=== PATIENT | female | born 1940 | race Caucasian/White ===

== ENCOUNTER → 2016-06-23 | Outpatient (CLI) | payer OTHER ==
[2016-06-23 09:57] LABS: BASO % 0.5 %; BASO ABS # 0.03 K/uL (0-0.2); COMPLETE YES; EOS % 7.1 %; HEMATOCRIT 35.6 % (37-47); IG% 0.2 %; LYMPH % 37.6 %; LYMPH ABS # 2.34 K/uL (1.2-3.4); MEAN CORPUSCULAR HEMOGLOBIN 30.2 pg (25-34); MEAN CORPUSCULAR HGB CONC 33.1 g/dl (32-36); MEAN PLATELET VOLUME 9.3 fL (7.4-10.4); MONO % 7.9 %; NEUT % 46.7 %; PLATELET COUNT 353 K/uL (130-400); RED BLOOD COUNT 3.91 M/uL (4.2-5.4); WHITE BLOOD COUNT 6.22 K/uL (4.8-10.8)
[2016-06-23 10:20] LABS: ESTIMATED AVERAGE GLUCOSE 108 mg/dl; HA1C FLAG Normal (Normal)
[2016-06-23 10:57] LABS: ALT/SGPT 21 U/L (12-78); AST/SGOT 12 U/L (15-37); BLOOD UREA NITROGEN 22 mg/dl (7-18); BUN/CREATININE RATIO 21.8 (10-20); CALCIUM 9.1 mg/dl (8.5-10.1); CARBON DIOXIDE 28 mmol/L (21-32); CHLORIDE 105 mmol/L (98-107); GLUCOSE 95 mg/dl (70-99); POTASSIUM 4.4 mmol/L (3.5-5.1); SODIUM 140 mmol/L (136-145)
[2016-06-23 11:08] LABS: ALB/GLOB RATIO 0.9 (0.9-2); ALKALINE PHOSPHATASE 75 U/L (45-117); CHOLESTEROL 211 mg/dl (0-200); CHOLESTEROL/HDL RATIO 4.1; HDL CHOLESTEROL 52 mg/dl; LDL CHOLESTEROL CALCULATED 140 mg/dl; TRIGLYCERIDES 94 mg/dl (0-150); VERY LOW DENSITY LIPOPROT CALC 19 mg/dl
--- NOTE | 2016-06-30 07:34 | CODING QUERY MEDICAL NECESSITY ---
CQSUPPORTING DIAGNOSIS NEEDED A supporting diagnosis is required for the test/procedure performed on this patient in order for us to be reimbursed by the patient's insurance. Please provide a supporting diagnosis for the following test/procedure listed below next to the test name along with your signature. *If there is no additional diagnosis for this patient that would support the following test/procedure please document that below next to the test/procedure. Test(s)/Procedure(s) that require a supporting diagnosis: DOS 06/23/16 GLYCATED HEMOGLOBIN TEST Provider Signature: Date: Thank you Ashley Johnston Health Information Management Once completed, please kindly fax back to [phone] For questions please call [phone]
== END | disposition home or self-care (01) ==
LOC: C.LAB1850 08:54
PROVIDERS: ATTEND Nurse Practitioner Adult Health
DX: I10 Essential (primary) hypertension (principal); E66.9 Obesity, unspecified; E03.9 Hypothyroidism, unspecified

== ENCOUNTER → 2016-07-14 | Outpatient (CLI) | payer OTHER ==
[2016-07-14 15:13] LABS: TOTAL IRON BINDING CAPACITY 303 mcg/dl (250-450)
--- NOTE | 2016-07-19 12:50 | CODING QUERY MEDICAL NECESSITY ---
SUPPORTING DIAGNOSIS NEEDED Ritter MACK, A supporting diagnosis is required for the test/procedure performed on this patient in order for us to be reimbursed by the patient's insurance. Please provide a supporting diagnosis for the following test/procedure listed below next to the test name along with your signature. *If there is no additional diagnosis for this patient that would support the following test/procedure please document that below next to the test/procedure. Test(s)/Procedure(s) that require a supporting diagnosis: * ([id number]) B12 VITAMIN LEVEL DIAGNOSIS: DATE OF SERVICE: 07/14/16 Provider Signature: Date: Thank you Antonio Navarrete Health Information Management Once completed, please kindly fax back to [phone] For questions please call [phone]
== END | disposition home or self-care (01) ==
LOC: C.LAB1850 12:36
PROVIDERS: ATTEND Nurse Practitioner Adult Health
DX: D64.9 Anemia, unspecified (principal)

== ENCOUNTER → 2016-08-27 | Outpatient (CLI) | payer OTHER ==
--- NOTE | 2016-09-01 11:24 | CODING QUERY MEDICAL NECESSITY ---
CQSUPPORTING DIAGNOSIS NEEDED A supporting diagnosis is required for the test/procedure performed on this patient in order for us to be reimbursed by the patient's insurance. Please provide a supporting diagnosis for the following test/procedure listed below next to the test name along with your signature. *If there is no additional diagnosis for this patient that would support the following test/procedure please document that below next to the test/procedure. Test(s)/Procedure(s) that require a supporting diagnosis: DOS 08/27/16 VITAMIN B12 TEST QUERY RETURNED WITH SIGNATURE BUT NO DIAGNOSIS PLEASE ADD DIAGNOSIS AND SIGNATURE THANK YOU Provider Signature: Date: Thank you Ashley Johnston Health Information Management Once completed, please kindly fax back to [phone] For questions please call [phone]
== END | disposition home or self-care (01) ==
LOC: C.LAB1850 12:29
PROVIDERS: ATTEND Nurse Practitioner Adult Health
DX: E03.9 Hypothyroidism, unspecified (principal); D64.9 Anemia, unspecified

== ENCOUNTER → 2016-09-15 | Outpatient (CLI) | payer OTHER ==
--- NOTE | 2016-09-15 15:37 | DIAGNOSTIC IMAGING REPORT ---
CHEST 2 VIEWS ROUTINE CLINICAL HISTORY: 75 years-old Female presenting with cough. TECHNIQUE: PA and lateral views of the chest were obtained. COMPARISON: None. FINDINGS: Cardiomediastinal silhouette normal. Lungs and pleural spaces clear. Multilevel degenerative changes of the thoracic spine. Cholecystectomy clips. IMPRESSION: 1. No acute cardiopulmonary disease. Electronically signed by: Ryan Ibanez M.D. 09/15/2016 3:36 PM Dictated Date/Time: 09/15/2016 3:35 PM
== END | disposition home or self-care (01) ==
LOC: C.RAD1850 15:25
PROVIDERS: ATTEND Nurse Practitioner Adult Health
DX: R05 Cough (principal)

== ENCOUNTER → 2016-11-30 | Outpatient (CLI) | payer OTHER ==
--- NOTE | 2016-11-30 16:05 | DIAGNOSTIC IMAGING REPORT ---
L-SPINE MIN 4 VIEWS ROUTINE CLINICAL HISTORY: 76 years-old Female presenting with fell off of a chair, lower back pain. TECHNIQUE: Frontal, bilateral oblique, lateral, and coned in lateral views of the lumbar spine were obtained. COMPARISON: None. FINDINGS: Mild scoliotic curvature of the lumbar spine. Normal lumbar lordosis. Vertebral bodies maintain normal height and alignment otherwise. Intervertebral disc height loss at essentially every level to varying degrees with endplate sclerosis and vacuum disc phenomenon noted. Anterior osteophytosis noted at nearly every level. L5-S1 is largely preserved. No radiographic evidence of fracture or subluxation. Sacroiliac joints and sacrum grossly intact. Moderate stool burden. Cholecystectomy clips. IMPRESSION: 1. No radiographic evidence of acute or osseous injury of the lumbar spine. 2. Multilevel degenerative change. Electronically signed by: Ryan Ibanez M.D. 11/30/2016 4:04 PM Dictated Date/Time: 11/30/2016 4:02 PM
[2016-11-30 16:36] LABS: HEMATOCRIT 35.3 % (37-47); MEAN CELL VOLUME 89.4 fL (80-100); MEAN CORPUSCULAR HEMOGLOBIN 29.9 pg (25-34); MEAN CORPUSCULAR HGB CONC 33.4 g/dl (32-36); MEAN PLATELET VOLUME 9.4 fL (7.4-10.4); PLATELET COUNT 382 K/uL (130-400); RED BLOOD COUNT 3.95 M/uL (4.2-5.4); WHITE BLOOD COUNT 9.14 K/uL (4.8-10.8)
[2016-11-30 17:07] LABS: ALT/SGPT 17 U/L (12-78); AST/SGOT 13 U/L (15-37); BLOOD UREA NITROGEN 21 mg/dl (7-18); BUN/CREATININE RATIO 18.9 (10-20); CALCIUM 9.1 mg/dl (8.5-10.1); CARBON DIOXIDE 25 mmol/L (21-32); CHLORIDE 103 mmol/L (98-107); GLUCOSE 87 mg/dl (70-99); POTASSIUM 4.2 mmol/L (3.5-5.1); SODIUM 136 mmol/L (136-145)
[2016-11-30 17:10] LABS: ALB/GLOB RATIO 0.9 (0.9-2); ALKALINE PHOSPHATASE 89 U/L (45-117)
[2016-11-30 17:45] LABS: COMPLETE YES; EOSINOPHIL % 1.8 %; LYMPH ABS # 2.35 K/uL (1.2-3.4); LYMPHOCYTE % 25.7 %; NEUTROPHILS % 55.7 %; VARIANT LYM ABS # 1.05 K/uL; VARIANT LYMPHOCYTE % 11.5 %
[2016-11-30 19:14] LABS: LYME DISEASE AB IGG NEG (NEG); LYME DISEASE AB IGM NEG (NEG)
== END | disposition home or self-care (01) ==
LOC: C.RAD1850 15:18
PROVIDERS: ATTEND Nurse Practitioner Adult Health
DX: S39.92XA Unspecified injury of lower back, initial encounter (principal); M89.8X8 Other specified disorders of bone, other site; R50.9 Fever, unspecified; W19.XXXA Unspecified fall, initial encounter

== ENCOUNTER → 2017-03-02 | Outpatient (CLI) | payer OTHER ==
--- NOTE | 2017-03-02 13:14 | DIAGNOSTIC IMAGING REPORT ---
CHEST 2 VIEWS ROUTINE CLINICAL HISTORY: Z87.898 H/O [id number] COMPARISON STUDY: 09/15/2016 FINDINGS: The cardiac and mediastinal contours are normal. There is no evidence of focal pulmonary consolidation. There is no evidence of failure. No pleural effusions are visualized.[ IMPRESSION: No active disease in the chest. Electronically signed by: Tadeo Martinez M.D. 03/02/2017 1:13 PM Dictated Date/Time: 03/02/2017 1:12 PM
== END | disposition home or self-care (01) ==
LOC: C.RAD1850 13:06
PROVIDERS: ATTEND Nurse Practitioner Adult Health
DX: R06.2 Wheezing (principal); Z87.898 Personal history of other specified conditions

== ENCOUNTER → 2017-03-30 | Outpatient (CLI) | payer OTHER ==
[2017-03-30 17:22] LABS: BASO % 0.4 %; BASO ABS # 0.03 K/uL (0-0.2); EOS ABS # 0.42 K/uL (0-0.5); HEMATOCRIT 34.8 % (37-47); HEMOGLOBIN 11.4 g/dL (12.0-16.0); IG# 0.01 K/uL (0.00-0.02); LYMPH % 42.1 %; LYMPH ABS # 2.95 K/uL (1.2-3.4); MEAN CELL VOLUME 91.6 fL (80-100); MEAN CORPUSCULAR HGB CONC 32.8 g/dl (32-36); MEAN PLATELET VOLUME 9.1 fL (7.4-10.4); MONO % 9.6 %; MONO ABS # 0.67 K/uL (0.11-0.59); NEUT % 41.8 %; NEUT ABS # 2.93 K/uL (1.4-6.5); PLATELET COUNT 375 K/uL (130-400); RED CELL DISTRIBUTION WIDTH CV 13.9 % (11.5-14.5); RED CELL DISTRIBUTION WIDTH SD 46.5 fL (36.4-46.3); WHITE BLOOD COUNT 7.01 K/uL (4.8-10.8)
--- NOTE | 2017-03-30 17:33 | DIAGNOSTIC IMAGING REPORT ---
KUB HISTORY: R10.9 Acute left flank pain [id number] COMPARISON: None. FINDINGS: The bowel gas pattern is unremarkable. There are no dilated loops of small bowel to suggest an obstruction. No renal calculi. No ureteral calculi. Calcifications in the deep pelvis likely represent phleboliths. Cholecystectomy. Moderate well-formed stool seen within the colon. Moderate degenerative changes within the lumbar spine. No pneumoperitoneum or pneumatosis. IMPRESSION: No renal or ureteral stones. Electronically signed by: Virgil James M.D. 03/30/2017 5:32 PM Dictated Date/Time: 03/30/2017 5:31 PM
[2017-03-30 17:43] LABS: ALBUMIN 3.3 gm/dl (3.4-5.0); ALT/SGPT 18 U/L (12-78); AST/SGOT 15 U/L (15-37); BLOOD UREA NITROGEN 17 mg/dl (7-18); CARBON DIOXIDE 29 mmol/L (21-32); CREATININE 1.08 mg/dl (0.60-1.20); GLUCOSE 90 mg/dl (70-99); LIPASE 108 U/L (73-393); POTASSIUM 4.4 mmol/L (3.5-5.1); SODIUM 134 mmol/L (136-145)
[2017-03-30 17:46] LABS: ALKALINE PHOSPHATASE 86 U/L (45-117); TOTAL PROTEIN 7.4 gm/dl (6.4-8.2)
== END | disposition home or self-care (01) ==
LOC: C.RAD1850 16:49
PROVIDERS: ATTEND Nurse Practitioner Adult Health
DX: R10.9 Unspecified abdominal pain (principal); R39.9 Unspecified symptoms and signs involving the genitourinary system

== ENCOUNTER → 2017-04-05 | Outpatient (CLI) | payer OTHER ==
[~2017-04-05] MED LIST: OPTIRAY 320 IV PRN
--- NOTE | 2017-04-05 15:01 | DIAGNOSTIC IMAGING REPORT ---
ABD/PELVIS IV CONTRAST ONLY CLINICAL HISTORY: 76 years-old Female presenting with R10.9 Acute left flank painR10.12 Abdominal pain, acute, left up. TECHNIQUE: Multidetector CT of the abdomen and pelvis was performed after the administration of intravenous contrast. IV contrast: 93 mL of Optiray 320. A dose lowering technique was used consistent with the principles of ALARA (as low as reasonably achievable). COMPARISON: Plain radiographs from 03/30/2017. CT DOSE (mGy.cm): The estimated cumulative dose is 844.91 mGy.cm. FINDINGS: Photographic Technician topogram: Cholecystectomy clips. Lung bases: Minimal basilar opacities, likely atelectasis. Mild mosaic attenuation at the lung bases could suggest small airways disease. Normal heart size. No pericardial or pleural effusion. Liver: Normal morphology. No liver lesion. Patent hepatic vasculature. Biliary: No intrahepatic or extrahepatic biliary ductal dilatation. Gallbladder surgically absent. Pancreas: Moderate parenchymal atrophy. Spleen: Normal. Adrenal glands: Indeterminate 1.3 cm right adrenal gland nodule. Kidneys and ureters: Left parapelvic cysts noted at the lower pole. No hydronephrosis. Normal parenchyma. Mild nonspecific perinephric fat stranding. No nephrolithiasis. Normal ureters. Bladder: Mild circumferential bladder wall thickening. Pelvic organs: Uterus surgically absent. No adnexal masses. Bowel: Moderate stool burden in the right colon. The appendix is normal. No bowel obstruction. The terminal ileum is mildly distended with fecal material. Peritoneal cavity: No free fluid or intraperitoneal gas. Lymph nodes: No enlarged lymph nodes in the abdomen or pelvis. Vasculature: Atherosclerosis of the normal caliber abdominal aorta. IVC patent. Abdominal wall: Midline infra umbilical abdominal wall surgical incision. Musculoskeletal: Degenerative changes of the spine. IMPRESSION: 1. No nephrolithiasis or hydronephrosis. 2. Mild circumferential bladder wall thickening could suggest cystitis. Correlate with urinalysis. 3. Indeterminate 1.3 cm right adrenal gland nodule. Electronically signed by: Ryan Ibanez M.D. 04/05/2017 2:59 PM Dictated Date/Time: 04/05/2017 2:53 PM
== END | disposition home or self-care (01) ==
LOC: C.CTS 14:31
PROVIDERS: ATTEND Nurse Practitioner Adult Health
DX: R10.12 Left upper quadrant pain (principal); E27.9 Disorder of adrenal gland, unspecified

== ENCOUNTER → 2017-05-19 | Outpatient (CLI) | payer OTHER | END | disposition home or self-care (01) | LOC: C.PATHSPEC 18:03 | PROVIDERS: ATTEND Urology | DX: N32.89 Other specified disorders of bladder (principal) ==

== ENCOUNTER 2020-07-21 16:03 | Inpatient (IN) ==
[2020-07-21] MEDS ORDERED: cefTRIAXone SODIUM 2,000 MG/70 ML BAG IV STA (19:16)
[2020-07-21] MEDS ORDERED: ACETAMINOPHEN 500 MG TAB PO STA (19:18)
[2020-07-21 19:51] LABS: Hemoglobin 9.2 g/dL (12.0-16.0); Mean Corpuscular Hemoglobin 29.9 pg (25-34); Mean Corpuscular Hgb Conc 34.1 g/dL (32-36); Mean Corpuscular Volume 87.7 fL (80-100); Mean Platelet Volume 9.2 fL (7.4-10.4); Platelet Count 279 K/uL (130-400); RDW Coefficient of Variation 13.7 % (11.5-14.5); RDW Standard Deviation 44.2 fL (36.4-46.3); Red Blood Count 3.08 M/uL (4.2-5.4); White Blood Count 19.92 K/uL (4.8-10.8)
[2020-07-21 20:01] LABS: Alanine Aminotransferase 31 U/L (12-78); Albumin Level 3.1 gm/dl (3.4-5.0); Aspartate Aminotransferase 25 U/L (15-37); BUN Creatinine Ratio 18.2 (10-20); Bilirubin,Total 0.5 mg/dl (0.2-1); Blood Urea Nitrogen 28 mg/dl (7-18); Calcium 8.9 mg/dl (8.5-10.1); Carbon Dioxide 22 mmol/L (21-32); Chloride 101 mmol/L (98-107); Est GFR (African American) 36.8 ml/min; Est GFR (Non-African American) 31.8 ml/min; Glucose 115 mg/dl (70-99); Magnesium 2.6 mg/dl (1.8-2.4); Potassium 4.9 mmol/L (3.5-5.1); Sodium 130 mmol/L (136-145)
[2020-07-21 20:03] LABS: Albumin Globulin Ratio 0.8 (0.9-2); Alkaline Phosphatase 75 U/L (45-117); Globulin 3.7 gm/dl (2.5-4.0); Total Protein 6.8 gm/dl (6.4-8.2)
[2020-07-21 20:06] LABS: Partial Thromboplastin Time 26.7 Seconds (21.0-31.0); Prothrombin Time 10.3 Seconds (9.0-12.0)
[2020-07-21 20:19] LABS: Basophils # (auto) 0.01 K/uL (0-0.2); Basophils % (auto) 0.1 %; Eosinophils # (auto) 0.01 K/uL (0-0.5); Eosinophils % (auto) 0.1 %; Immature Granulocytes % (auto) 0.5 %; Lymphocytes # (auto) 1.22 K/uL (1.2-3.4); Lymphocytes % (auto) 6.1 %; Monocytes # (auto) 1.85 K/uL (0.11-0.59); Monocytes % (auto) 9.3 %; Neutrophils # (auto) 16.73 K/uL (1.4-6.5); Neutrophils % (auto) 83.9 %
[2020-07-21] MEDS ORDERED: VANCOMYCIN CONSULT ACTIVE PRN (20:30)
[2020-07-21] MEDS ORDERED: VANCOMYCIN HCL 1,000 MG/270 ML BAG IV STA (20:30)
[2020-07-21] MEDS ORDERED: SODIUM CHLORIDE 0.9% 1000ML 500 ML IV ONE (20:30)
[2020-07-21 20:39] LABS: Appearance Urine Cloudy (Clear); Bacteria Urine Automated Negative (Negative); Bilirubin Urine Negative (Negative); Blood Urine Negative (Negative); Cast Urine Automated 0 /lpf (0-5); Color Urine Yellow; Glucose Urine UA Negative (Negative); Ketones Urine Negative (Negative); Leukocyte Esterase Urine Negative (Negative); Nitrite Urine Negative (Negative); Protein Urine Negative (Negative); RBC Urine Automated 0-4 /hpf (0-4); Specific Gravity Urine 1.016 (1.000-1.030); Urobilinogen Urine Negative (Negative)
--- NOTE | 2020-07-21 21:23 | XRay Report ---
SINGLE VIEW CHEST CLINICAL HISTORY: Sepsis. FINDINGS: An AP, portable, upright chest radiograph is compared to study dated 12/20/2018. The heart is enlarged noting atherosclerotic calcification of the thoracic aorta. There is pulmonary vascular c ongestion. There is bibasilar atelectasis. No large pleural effusion or pneumothorax is seen. The ske letal structures are osteopenic. The bony thorax is grossly intact. Arthritic change is seen in the s houlders. IMPRESSION: Cardiomegaly with mild pulmonary vascular congestion. ACT 112: Negative or not required by law. Electronically signed by: Salvatore Khan M.D. 07/21/2020 9:21 PM
[2020-07-21] MEDS ORDERED: DAPTOmycin 475 MG in SYRINGE 0 ML IV ONE (22:07)
--- NOTE | 2020-07-21 23:12 | History & Physical Report ---
Date of Service July 21, 2020 Assessment & Plan (1) Cellulitis of left lower extremity without foot: Continue daptomycin IV and ceftriaxone IV. Follow clinical examination Continue local wound care. Present on Admission?: Yes (2) Obstructive sleep apnea: CPAP at bedtime as needed Present on Admission?: Yes (3) Hypothyroidism: Continue levothyroxine 150 mcg daily Present on Admission?: Yes (4) Hypertension: Continue aspirin Hold lisinopril Present on Admission?: Yes (5) CKD (chronic kidney disease), stage III: Creatinine 1.53 upon admission, with range 1.32-1.6. Hold lisinopril and diclofenac sodium. Give 1 L normal saline Recheck laboratories in a.m. Present on Admission?: Yes (6) Acid reflux disease: Continue omeprazole 40 mg daily Present on Admission?: Yes (7) Depression with anxiety: Depression with anxiety/fibromyalgia- Continue duloxetine, nortriptyline and quetiapine. Present on Admission?: Yes (8) Fibromyalgia: Present on Admission?: Yes History of Present Illness Chief Complaint: The patient presents to the emergency department worsening left lower extremity erythema and warmth over the past 4 days. Primary Care Provider: Betsy Lovett MD The patient is an 79-year-old female with a past medical history including VALERIA, osteoarthritis, obesity, hypothyroidism, fibromyalgia, chronic back pain, GERD, anemia, hypertension, depression with anxiety and chronic interstitial cystitis. The patient reports that she had tripped over something on the floor several days ago, and bumped her left leg. Since that time, her left lower extremity began to develop redness and warmth, which is has extended from the lateral surface distal one third of her leg up to her knee. Work-up in the emergency department including venous Doppler which was negative for DVT. Patient was given daptomycin IV and ceftriaxone IV, and normal saline 500 cc while in the ED. Allergies Allergy/AdvReac Type Severity Reaction Status Date / Time Sulfa (Sulfonamide Allergy Mild Hives Verified 07/21/20 20:35 Antibiotics) fluoxetine [From Prozac] AdvReac Unknown Opposite Verified 07/21/20 20:35 effect Home Medications Medication Instructions Recorded Confirmed Type acetaminophen 650 mg 1,300 mg PO BID PRN tab 10/20/18 07/21/20 History tablet,extended release cholecalciferol (vitamin D3) 25 1,000 unit PO QAM cap 10/20/18 07/21/20 History mcg (1,000 unit) capsule flaxseed oil 1,000 mg capsule 1,000 mg PO QAM cap 10/20/18 07/21/20 History aspirin 81 mg PO QPM 11/09/18 07/21/20 History multivitamin-ferrous 1 tab PO QAM 11/16/18 07/21/20 History fumarate-folic acid 18 mg-400 mcg tablet miscellaneous medical supply #1 ea 08/13/19 07/10/20 Rx albuterol sulfate 90 mcg/actuation 1 puff INHALATION Q4H PRN #18 gm 09/10/19 07/21/20 Rx aerosol inhaler diclofenac sodium 75 mg 75 mg PO Q12H #60 tab 01/30/20 07/21/20 Rx tablet,delayed release duloxetine 60 mg capsule,delayed 60 mg PO DAILY #30 cap 02/27/20 07/21/20 Rx release quetiapine 25 mg tablet 75 mg PO HS #90 tab 03/07/20 07/21/20 Rx nortriptyline 75 mg capsule 150 mg PO HS #60 cap 04/17/20 07/21/20 Rx lisinopril 20 mg tablet 20 mg PO QAM #90 tab 05/28/20 07/21/20 Rx omeprazole 40 mg capsule,delayed 40 mg PO DAILY #90 cap 05/28/20 07/21/20 Rx release levothyroxine 150 mcg tablet 150 mcg PO QAM #90 tab 07/18/20 07/21/20 Rx Past Med/Surg History Medical History (Updated 07/22/20 @ 04:22 by Donald Beal MD) Adrenal gland cyst Anemia Aortic regurgitation follows with Dr. 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 Ryan Sleep apnea cpap Spinal stenosis Surgical History H/O: hysterectomy KEMAR, BSO History of appendectomy (~1981) History of cataract surgery bilt History of cholecystectomy History of colonoscopy with polypectomy recent 11/12/2019 History of dilatation and curettage History of esophagogastroduodenoscopy (EGD) recent 11/12/2019 History of lumpectomy of right breast benign History of meniscectomy of left knee History of tooth extraction History of total left knee replacement (TKR) History of total right knee replacement (TKR) Hx of tonsillectomy Family History Mother Osteoporosis CHF (congestive heart failure) Heart disease Cardiac disorder Myocardial infarction Lung disease Hypertension Father Alcohol abuse Abdominal aortic aneurysm Cardiac disorder Hypertension Brother Liver cancer Prostate cancer Abdominal aortic aneurysm Cardiac disorder Hypertension Aunt Breast cancer Other No family history of adverse response to anesthesia Denies family history of Colon cancer Ovarian cancer Social History Smoking Status: Never smoker Second Hand Exposure: Yes (parents smoked); Hx Alcohol Use: Yes Alcohol type: wine Hx Substance Use: No Preferred Language: [place] Island[place] Communication Ability: Effective Visual Impairment: No Limitations Hearing Ability: Normal Milk Driver Required: No Beliefs That Will Affect Care: None marital status: Current Living Situation: Family Current Living Situation Comment: son lives with her current occupational status: retired Other Information That Helps Us Care for You: No Feels Safe at Home: Yes Safety Concerns: Feels Safe At This Time Childhood Exposure to Second-Hand Smoke: Yes Dental Care, Regularly: Yes Physical Activity Frequency: 5-6 Times per Week Seatbelt Use: always Sunscreen Use: Yes Assistive Devices: None Assistive Devices Comment: reading glasses Review of Systems Review of Systems: The patient denies chest pain, palpitations, shortness of breath, dyspnea on exertion, cough, sore throat, fevers, chills, sweats, nausea, vomiting, diarrhea , constipation, abdominal pain, pelvic pain, blood in urine or stool, dysuria, urinary frequency or urgency, lightheadedness, dizziness, headache, memory loss, loss of consciousness, abnormal bruising or bleeding, imbalance, focal or generalized weakness, numbness or tingling in arms, generalized arthralgias or myalgias, back or neck pain, or night sweats. The review of systems is otherwise negative other than for that already noted above, and at least 10 systems have been reviewed. Physical Exam Physical Exam: The patient is awake, alert and oriented 3, well developed and well nourished, normocephalic and atraumatic, lying in bed and in no acute distress. HEENT--PERRL, EOMI, mucous membranes and oropharynx dry. Neck--supple. No JVD. No bruits. Thyroid normal, trachea midline, no adenopathy. Heart--normal S1 and S2. No murmurs, rubs or gallops. Lungs--clear bilaterally, no respiratory distress, no accessory muscle use. Abdomen--normal bowel sounds and soft. Nontender. Nondistended. Obese Extremities--right lower extremity normal. Left lower extremity with abrasion lateral distal third of tibia, with erythema extending laterally up to the knee Dermatologic--left lower extremity rashes noted Neurologic--cranial nerves II through XII grossly intact. Rheumatologic--normal range of motion. Psychiatric--normal affect. Results & Data Results & Data ([facility]) Vital Signs (Past 12 Hours) Vital Signs Temp Pulse Pulse Resp BP BP Pulse Ox 07/21/20 22:31 58 L 17 124/45 L 97 07/21/20 21:31 57 L 21 133/48 L 96 07/21/20 21:01 63 19 126/46 L 97 07/21/20 20:56 62 67 20 130/51 L 97 07/21/20 20:31 58 L 16 130/51 L 97 07/21/20 20:03 68 18 140/55 L 95 07/21/20 19:59 99.1 F 07/21/20 19:01 98.8 F 73 66 22 160/78 H 160/78 H 95 07/21/20 16:10 98.8 F 92 H 18 157/77 H 96 Laboratory Results Laboratory Results WBC 19.92 K/uL (4.8-10.8) H 07/21/20 19: RBC 3.08 M/uL (4.2-5.4) L 07/21/20 19: Hgb 9.2 g/dL (12.0-16.0) L 07/21/20 19: Hct 27.0 % (37-47) L 07/21/20 19:22 MCV 87.7 fL (80-100) 07/21/20 19: MCH 29.9 pg (25-34) 07/21/20 19:22 MCHC 34.1 g/dL (32-36) 07/21/20 19: RDW Std Deviation 44.2 fL (36.4-46.3) 07/21/20 19: RDW Coeff of Nona 13.7 % (11.5-14.5) 07/21/20 19: Plt Count 279 K/uL (130-400) 07/21/20 19: MPV 9.2 fL (7.4-10.4) 07/21/20 19: Immature Gran % (Auto) 0.5 % 07/21/20 19: Neut % (Auto) 83.9 % 07/21/20 19: Lymph % (Auto) 6.1 % 07/21/20: [place] % (Auto) 9.3 % 07/21/20 19: Eos % (Auto) 0.1 % 07/21/20 19: Baso % (Auto) 0.1 % 07/21/20 19: Neut # (Auto) 16.73 K/uL (1.4-6.5) H 07/21/20 19: Lymph # (Auto) 1.22 K/uL (1.2-3.4) 07/21/20 19: [place] # (Auto) 1.85 K/uL (0.11-0.59) H 07/21/20 19: Eos # (Auto) 0.01 K/uL (0-0.5) 07/21/20 19: Baso # (Auto) 0.01 K/uL (0-0.2) 07/21/20: Immature Gran # (Auto) 0.10 K/uL (0.00-0.02) H 07/21/20 19: PT 10.3 Seconds (9.0-12.0) 07/21/20 19: INR 1.0 (0.9-1.1) 07/21/20 19: APTT 26.7 Seconds (21.0-31.0) 07/21/20: PTT Ratio 1.0 07/21/20 19: Sodium 130 mmol/L (136-145) L 07/21/20 19: Potassium 4.9 mmol/L (3.5-5.1) 07/21/20 19:22 Chloride 101 mmol/L (98-107) 07/21/20 19:22 Carbon Dioxide 22 mmol/L (21-32) 07/21/20 19:22 Anion Gap 7.0 (3-11) 07/21/20 19:22 BUN 28 mg/dl (7-18) H 07/21/20 19:22 Creatinine 1.53 mg/dl (0.6-1.2) H 07/21/20 19:22 Est Cr Clr Drug Dosing Not Reportable 07/21/20 19:22 Est GFR ( Amer) 36.8 ml/min 07/21/20 19: Est GFR (Non-Af Amer) 31.8 ml/min 07/21/20 19:22 BUN/Creatinine Ratio 18.2 (10-20) 07/21/20 19:22 Glucose 115 mg/dl (70-99) H 07/21/20 19:22 Lactate 1.3 mmol/L (0.4-2.0) 07/21/20 19:22 Calcium 8.9 mg/dl (8.5-10.1) 07/21/20 19:22 Magnesium 2.6 mg/dl (1.8-2.4) H 07/21/20 19:22 Total Bilirubin 0.5 mg/dl (0.2-1) 07/21/20 19:22 AST 25 U/L (15-37) 07/21/20 19:22 ALT 31 U/L (12-78) 07/21/20 19:22 Alkaline Phosphatase 75 U/L (45-117) 07/21/20 19:22 Total Protein 6.8 gm/dl (6.4-8.2) 07/21/20 19:22 Albumin 3.1 gm/dl (3.4-5.0) L 07/21/20 19:22 Globulin 3.7 gm/dl (2.5-4.0) 07/21/20 19:22 Albumin/Globulin Ratio 0.8 (0.9-2) L 07/21/20 19:22 Urine Color Yellow 07/21/20 20:17 Urine Appearance Cloudy (Clear) A 07/21/20 20:17 Urine pH 5.0 (4.5-7.5) 07/21/20 20:17 Ur Specific [place] 1.016 (1.000-1.030) 07/21/20 20:17 Urine Protein Negative (Negative) 07/21/20 20:17 Urine Glucose (UA) Negative (Negative) 07/21/20 20:17 Urine Ketones Negative (Negative) 07/21/20 20:17 Urine Blood Negative (Negative) 07/21/20 20:17 Urine Nitrite Negative (Negative) 07/21/20 20:17 Urine Bilirubin Negative (Negative) 07/21/20 20:17 Urine Urobilinogen Negative (Negative) 07/21/20 20:17 Ur Leukocyte Esterase Negative (Negative) 07/21/20 20:17 Urine WBC (Auto) 1-5 /hpf (0-5) 07/21/20 20:17 Urine RBC (Auto) 0-4 /hpf (0-4) 07/21/20 20:17 U Hyaline Cast (Auto) 0 /lpf (0-5) 07/21/20 20:17 U Epithel Cells (Auto) 10-20 /lpf (0-5) H 07/21/20 20:17 Urine Bacteria (Auto) Negative (Negative) 07/21/20 20:17 COVID-19 Eval Order Covid19 at [facility] 07/21/20 20:01 SARS-CoV-2 (PCR) NEGATIVE (Negative) 07/21/20 20:01 Impressions Chest X-Ray 07/21/20 19:16 SINGLE VIEW CHEST CLINICAL HISTORY: Sepsis. FINDINGS: An AP, portable, upright chest radiograph is compared to study dated 12/20/2018. The heart is enlarged noting atherosclerotic calcification of the thoracic aorta. There is pulmonary vascular congestion. There is bibasilar atelectasis. No large pleural effusion or pneumothorax is seen. The skeletal structures are osteopenic. The bony thorax is grossly intact. Arthritic change is seen in the shoulders. IMPRESSION: Cardiomegaly with mild pulmonary vascular congestion. ACT 112: Negative or not required by law. Electronically signed by: Salvatore Khan M.D. 07/21/2020 9:21 PM Code Status & VTE Plan Code Status Full code VTE Prophylaxis Plan VTE Prophylaxis will be ordered: Yes PG Care Time/CCT Total # of Minutes Spent Total Time Spent with Patient: Total time spent is greater than 50% in coordination of care (as documented) at patient's floor/unit and/or counseling patient: Coding Level of Care Code 02645 Initial Inpt Care Lvl 3 Diagnoses Cellulitis of left lower extremity without foot L03.116 Obstructive sleep apnea G47.33 Hypothyroidism E03.9 Hypertension I10 CKD (chronic kidney disease), stage III N18.30 Acid reflux disease K21.9 Depression with anxiety F41.8 Fibromyalgia M79.7
[2020-07-21] MEDS ORDERED: SODIUM CHLORIDE 0.9% 1000ML 1,000 ML IV SCH (23:15)
[2020-07-22] MEDS ORDERED: ONDANSETRON INJ 2 MG/ML 2 ML VIAL IV PRN (00:42)
[2020-07-22] MEDS ORDERED: MAGNESIUM HYDROXIDE SUSP 30 ML UDC PO PRN (00:42)
[2020-07-22] MEDS ORDERED: ALUMINUM/MAGNESIUM SUSP 30 ML UDC PO PRN (00:42)
--- NOTE | 2020-07-22 00:57 | Emergency Department Note ---
Impression & Plan Cellulitis ED Provider Note NAME: DIANNE MELENDEZ AGE: 79 SEX: F : 1940 ARRIVES VIA: Walk-In INFORMANT: Patient, ED PROVIDER(S): Anthony Flores MD CHIEF COMPLAINT: fevers, chills HPI: This an 79-year-old female who presents emergency department complaining of weakness as well as pain and fevers and chills that has been ongoing for the past several days. The patient reports that she cannot get warm. She has been taken Tylenol for the pain without relief of her symptoms. The patient reports the pain is to her left lower extremity. She denies any radiation of the pain. She reports movement makes the pain worse however rest makes it better. She has a history of cellulitis when she was a child. ROS: See above HPI for pertinent positives & negatives. A total of 10 systems reviewed and were otherwise negative. PAST MEDICAL HISTORY: See Below PAST SURGICAL HISTORY: See Below FAMILY HISTORY: See Below SOCIAL HISTORY: See Below HOME MEDICATIONS: See Below ALLERGIES: See Below VITALS: See Below PHYSICAL EXAMINATION: VITAL SIGNS - Vital signs and nursing notes were reviewed. GENERAL - 79-year-old female appearing stated age who is in no acute distress. Communicates well with provider and answers questions appropriately. SKIN - Rash that is warm to touch to LLE HEAD - NC/AT. EYES - PERRL with EOMI bilaterally. Sclera anicteric. Palpebral conjunctiva pink and moist with no injection noted. EARS - No deformities of external structures noted on gross examination bilaterally. NOSE - Midline and without cyanosis. No epistaxis or purulent drainage noted. Septum midline without deviation or septal hematoma noted. MOUTH/OROPHARYNX - Without perioral cyanosis. Buccal mucosa pink and moist and without leukoplakia. Tongue midline with equal elevation of palate bilaterally. No tonsillar hypertrophy, erythema, or exudates noted. NECK - Neck with FROM. Supple to palpation. No nuchal rigidity. LUNGS - Chest wall symmetric without accessory muscle use, intercostals retractions, or central cyanosis. Normal vesicular breath sounds CTA B/L. No wheezes, rales, or rhonchi appreciated. CARDIAC - RRR with S1/S2. No murmur, rubs, or gallops appreciated. ABDOMEN - Abdominal contour without pulsations or visible masses. BS normoactive all four quadrants. No tenderness, palpable masses, hepatosplenomegaly, or ascites noted. EXTREMITIES - No clubbing or peripheral cyanosis. No pretibial edema present. +3/5 radial, posterior tibial, and dorsalis pedis pulses palpated throughout. +5/5 strength noted in UE/LE bilaterally. NEUROLOGIC - Cranial nerves II through XII grossly intact. Sensory intact to light touch throughout. Patellar reflexes +2/4. PSYCH - A&Ox3 and cooperates fully with examiner. Pt is very pleasant and interacts well with examiner. MEDICAL DECISION MAKING: Patient was seen and evaluated as above in room C5. Review was performed of nursing notes and vital signs. I did review pertinent previous visits and patient history. After obtaining a thorough history and physical examination the above work up was performed. This is an 79-year-old female who presents emergency department with what appears to be cellulitis to the left lower extremity. The patient does have a large elevation in her white blood cell count at 19,000. She was started on IV Rocephin as well as daptomycin. She is slightly dehydrated. I did discuss the case with the hospitalist service who did agree to admit the patient. Patient and family are in agreement with the treatment plan. An order was placed for continuous cardiac monitoring. The monitor shows a rate of 62 with Normal Sinus rhythm. I attest that I have personally reviewed the patient medication list. The patient was evaluated during a period of high volume and high acuity during the global COVID-19 pandemic, and that diagnosis was suspected/considered upon their initial presentation. Their evaluation, treatment and testing was consistent with current guidelines for patients who present with complaints or symptoms that may be related to COVID-19. Patient was seen while provider was wearing PPE. Triage Nursing notes reviewed. Prior medical records reviewed Vital Signs: reviewed and remarkable for no significant abnormalities Differential diagnosis: Viral syndrome, otitis, pharyngitis, pneumonia, influenza, meningitis, urinary tract infection, sepsis, bacteremia, as well as other pathologies. ER treatment provided: See below Diagnostics interpreted by me: ECG: Sinus rhythm marked sinus arrhythmia left ventricular hypertrophy with QRS widening nonspecific T wave abnormality QTC is 428 ventricular rate of 71 when compared with EKG of 11/09/2018 no significant changes found. Laboratory studies: As stated above and show below. Imaging studies: Ultrasound venous left lower extremity: No evidence of left lower extremity DVT. Consultation(s): Internal Medicine Past Med/Surg History Medical History (Updated 07/22/20 @ 02:07 by Anthony Flores MD) Adrenal gland cyst Anemia Aortic regurgitation follows with Dr. 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 Ryan Sleep apnea cpap Spinal stenosis Surgical History H/O: hysterectomy KEMAR, BSO History of appendectomy (~1981) History of cataract surgery bilt History of cholecystectomy History of colonoscopy with polypectomy recent 11/12/2019 History of dilatation and curettage History of esophagogastroduodenoscopy (EGD) recent 11/12/2019 History of lumpectomy of right breast benign History of meniscectomy of left knee History of tooth extraction History of total left knee replacement (TKR) History of total right knee replacement (TKR) Hx of tonsillectomy Family History Mother Osteoporosis CHF (congestive heart failure) Heart disease Cardiac disorder Myocardial infarction Lung disease Hypertension Father Alcohol abuse Abdominal aortic aneurysm Cardiac disorder Hypertension Brother Liver cancer Prostate cancer Abdominal aortic aneurysm Cardiac disorder Hypertension Aunt Breast cancer Other No family history of adverse response to anesthesia Denies family history of Colon cancer Ovarian cancer Social History Smoking Status: Never smoker Second Hand Exposure: Yes (parents smoked); Hx Alcohol Use: Yes Alcohol type: wine Hx Substance Use: No Preferred Language: Ukrainian Communication Ability: Effective Visual Impairment: No Limitations Hearing Ability: Normal [place] Applier Required: No Beliefs That Will Affect Care: None marital status: Current Living Situation: Alone current occupational status: retired Feels Safe at Home: Yes Childhood Exposure to Second-Hand Smoke: Yes Dental Care, Regularly: Yes Physical Activity Frequency: 5-6 Times per Week Seatbelt Use: always Sunscreen Use: Yes Assistive Devices: CPAP and Glasses Allergies Allergies Allergy/AdvReac Type Severity Reaction Status Date / Time Sulfa (Sulfonamide Allergy Mild Hives Verified 07/21/20 20:35 Antibiotics) fluoxetine [From Prozac] AdvReac Unknown Opposite Verified 07/21/20 20:35 effect Home Meds Home Medications Medication Instructions Recorded Confirmed acetaminophen 650 mg 1,300 mg PO BID PRN tab 10/20/18 07/21/20 tablet,extended release cholecalciferol (vitamin D3) 25 1,000 unit PO QAM cap 10/20/18 07/21/20 mcg (1,000 unit) capsule flaxseed oil 1,000 mg capsule 1,000 mg PO QAM cap 10/20/18 07/21/20 aspirin 81 mg PO QPM 11/09/18 07/21/20 multivitamin-ferrous 1 tab PO QAM 11/16/18 07/21/20 fumarate-folic acid 18 mg-400 mcg tablet Previous Rx's Medication Instructions Recorded miscellaneous medical supply #1 ea 08/13/19 albuterol sulfate 90 mcg/actuation 1 puff INHALATION Q4H PRN #18 gm 09/10/19 aerosol inhaler diclofenac sodium 75 mg 75 mg PO Q12H #60 tab 01/30/20 tablet,delayed release duloxetine 60 mg capsule,delayed 60 mg PO DAILY #30 cap 02/27/20 release quetiapine 25 mg tablet 75 mg PO HS #90 tab 03/07/20 nortriptyline 75 mg capsule 150 mg PO HS #60 cap 04/17/20 lisinopril 20 mg tablet 20 mg PO QAM #90 tab 05/28/20 omeprazole 40 mg capsule,delayed 40 mg PO DAILY #90 cap 05/28/20 release levothyroxine 150 mcg tablet 150 mcg PO QAM #90 tab 07/18/20 Results & Data (ED) Vital Signs Vital Signs - 24 hr 07/21/20 16:10 07/21/20 19:01 07/21/20 19:59 Temperature 37.1 C 37.1 C 37.3 C Temperature Source Temporal Artery Scan Oral Oral Pulse Rate 92 H 73 Pulse Rate [Apical] 66 Pulse Rate from SpO2 Sensor 76 Pulse Rhythm Regular Pulse Rhythm [Apical] Regular Pulse Strength [Apical] Normal Respiratory Rate 18 22 Respiratory Effort / Characteristics Non-Labored Non-Labored Spontaneous Respiratory Depth Normal Normal Respiratory Pattern Regular Blood Pressure 157/77 H 160/78 H Blood Pressure [Left Arm] 160/78 H Blood Pressure Mean 103 105 Blood Pressure Mean [Left Arm] 105 Blood Pressure Position [Left Arm] Sitting Pulse Oximetry 96 95 Oxygen Delivery Method Room Air Room Air Sepsis Recent Fever Within 48 Hours No Sepsis New/Unexplained Change in Mental Status No Sepsis Action Taken by Nursing No Action Required 07/21/20 20:03 07/21/20 20:31 07/21/20 20:56 Temperature Temperature Source Pulse Rate 68 58 L 62 Pulse Rate [Apical] 67 Pulse Rate from SpO2 Sensor 70 60 Pulse Rhythm Regular Pulse Rhythm [Apical] Pulse Strength [Apical] Respiratory Rate 18 16 20 Respiratory Effort / Characteristics Respiratory Depth Respiratory Pattern Blood Pressure 140/55 L 130/51 L Blood Pressure [Left Arm] 130/51 L Blood Pressure Mean 83 77 Blood Pressure Mean [Left Arm] 77 Blood Pressure Position [Left Arm] Sitting Pulse Oximetry 95 97 97 Oxygen Delivery Method Room Air Room Air Sepsis Recent Fever Within 48 Hours Sepsis New/Unexplained Change in Mental Status Sepsis Action Taken by Nursing 07/21/20 21:01 07/21/20 21:31 07/21/20 22:31 Temperature Temperature Source Pulse Rate 63 57 L 58 L Pulse Rate [Apical] Pulse Rate from SpO2 Sensor 61 59 L 58 L Pulse Rhythm Pulse Rhythm [Apical] Pulse Strength [Apical] Respiratory Rate 19 21 17 Respiratory Effort / Characteristics Respiratory Depth Respiratory Pattern Blood Pressure 126/46 L 133/48 L 124/45 L Blood Pressure [Left Arm] Blood Pressure Mean 72 76 71 Blood Pressure Mean [Left Arm] Blood Pressure Position [Left Arm] Pulse Oximetry 97 96 97 Oxygen Delivery Method Sepsis Recent Fever Within 48 Hours Sepsis New/Unexplained Change in Mental Status Sepsis Action Taken by Nursing 07/21/20 23:01 Temperature Temperature Source Pulse Rate 62 Pulse Rate [Apical] Pulse Rate from SpO2 Sensor Pulse Rhythm Pulse Rhythm [Apical] Pulse Strength [Apical] Respiratory Rate 21 Respiratory Effort / Characteristics Respiratory Depth Respiratory Pattern Blood Pressure 132/43 L Blood Pressure [Left Arm] Blood Pressure Mean 72 Blood Pressure Mean [Left Arm] Blood Pressure Position [Left Arm] Pulse Oximetry 97 Oxygen Delivery Method Sepsis Recent Fever Within 48 Hours Sepsis New/Unexplained Change in Mental Status Sepsis Action Taken by Nursing Laboratory Data Result diagrams: 07/21/20 19:22 07/21/20 19:22 Lab Results 07/21/20 07/21/20 07/21/20 Range/Units 19:22 19:22 19:22 WBC 19.92 H (4.8-10.8) K/uL RBC 3.08 L (4.2-5.4) M/uL Hgb 9.2 L (12.0-16.0) g/dL Hct 27.0 L (37-47) % MCV 87.7 (80-100) fL MCH 29.9 (25-34) pg MCHC 34.1 (32-36) g/dL RDW Std Deviation 44.2 (36.4-46.3) fL RDW Coeff of Nona 13.7 (11.5-14.5) % Plt Count 279 (130-400) K/uL MPV 9.2 (7.4-10.4) fL Immature Gran % (Auto) 0.5 % Neut % (Auto) 83.9 % Lymph % (Auto) 6.1 % [place] % (Auto) 9.3 % Eos % (Auto) 0.1 % Baso % (Auto) 0.1 % Neut # (Auto) 16.73 H (1.4-6.5) K/uL Lymph # (Auto) 1.22 (1.2-3.4) K/uL [place] # (Auto) 1.85 H (0.11-0.59) K/uL Eos # (Auto) 0.01 (0-0.5) K/uL Baso # (Auto) 0.01 (0-0.2) K/uL Immature Gran # (Auto) 0.10 H (0.00-0.02) K/uL PT 10.3 (9.0-12.0) Seconds INR 1.0 (0.9-1.1) APTT 26.7 (21.0-31.0) Seconds PTT Ratio 1.0 Sodium 130 L (136-145) mmol/L Potassium 4.9 (3.5-5.1) mmol/L Chloride 101 (98-107) mmol/L Carbon Dioxide 22 (21-32) mmol/L Anion Gap 7.0 (3-11) BUN 28 H (7-18) mg/dl Creatinine 1.53 H (0.6-1.2) mg/dl Est Cr Clr Drug Dosing Not Reportable Est GFR ( Amer) 36.8 ml/min Est GFR (Non-Af Amer) 31.8 ml/min BUN/Creatinine Ratio 18.2 (10-20) Glucose 115 H (70-99) mg/dl Lactate (0.4-2.0) mmol/L Calcium 8.9 (8.5-10.1) mg/dl Magnesium 2.6 H (1.8-2.4) mg/dl Total Bilirubin 0.5 (0.2-1) mg/dl AST 25 (15-37) U/L ALT 31 (12-78) U/L Alkaline Phosphatase 75 (45-117) U/L Total Protein 6.8 (6.4-8.2) gm/dl Albumin 3.1 L (3.4-5.0) gm/dl Globulin 3.7 (2.5-4.0) gm/dl Albumin/Globulin Ratio 0.8 L (0.9-2) Urine Color Urine Appearance (Clear) Urine pH (4.5-7.5) Ur Specific [place] (1.000-1.030) Urine Protein (Negative) Urine Glucose (UA) (Negative) Urine Ketones (Negative) Urine Blood (Negative) Urine Nitrite (Negative) Urine Bilirubin (Negative) Urine Urobilinogen (Negative) Ur Leukocyte Esterase (Negative) Urine WBC (Auto) (0-5) /hpf Urine RBC (Auto) (0-4) /hpf U Hyaline Cast (Auto) (0-5) /lpf U Epithel Cells (Auto) (0-5) /lpf Urine Bacteria (Auto) (Negative) COVID-19 Eval Order SARS-CoV-2 (PCR) (Negative) 07/21/20 07/21/20 07/21/20 Range/Units 19:22 20:01 20:01 WBC (4.8-10.8) K/uL RBC (4.2-5.4) M/uL Hgb (12.0-16.0) g/dL Hct (37-47) % MCV (80-100) fL MCH (25-34) pg MCHC (32-36) g/dL RDW Std Deviation (36.4-46.3) fL RDW Coeff of Nona (11.5-14.5) % Plt Count (130-400) K/uL MPV (7.4-10.4) fL Immature Gran % (Auto) % Neut % (Auto) % Lymph % (Auto) % [place] % (Auto) % Eos % (Auto) % Baso % (Auto) % Neut # (Auto) (1.4-6.5) K/uL Lymph # (Auto) (1.2-3.4) K/uL [place] # (Auto) (0.11-0.59) K/uL Eos # (Auto) (0-0.5) K/uL Baso # (Auto) (0-0.2) K/uL Immature Gran # (Auto) (0.00-0.02) K/uL PT (9.0-12.0) Seconds INR (0.9-1.1) APTT (21.0-31.0) Seconds PTT Ratio Sodium (136-145) mmol/L Potassium (3.5-5.1) mmol/L Chloride (98-107) mmol/L Carbon Dioxide (21-32) mmol/L Anion Gap (3-11) BUN (7-18) mg/dl Creatinine (0.6-1.2) mg/dl Est Cr Clr Drug Dosing Est GFR ( Amer) ml/min Est GFR (Non-Af Amer) ml/min BUN/Creatinine Ratio (10-20) Glucose (70-99) mg/dl Lactate 1.3 (0.4-2.0) mmol/L Calcium (8.5-10.1) mg/dl Magnesium (1.8-2.4) mg/dl Total Bilirubin (0.2-1) mg/dl AST (15-37) U/L ALT (12-78) U/L Alkaline Phosphatase (45-117) U/L Total Protein (6.4-8.2) gm/dl Albumin (3.4-5.0) gm/dl Globulin (2.5-4.0) gm/dl Albumin/Globulin Ratio (0.9-2) Urine Color Urine Appearance (Clear) Urine pH (4.5-7.5) Ur Specific [place] (1.000-1.030) Urine Protein (Negative) Urine Glucose (UA) (Negative) Urine Ketones (Negative) Urine Blood (Negative) Urine Nitrite (Negative) Urine Bilirubin (Negative) Urine Urobilinogen (Negative) Ur Leukocyte Esterase (Negative) Urine WBC (Auto) (0-5) /hpf Urine RBC (Auto) (0-4) /hpf U Hyaline Cast (Auto) (0-5) /lpf U Epithel Cells (Auto) (0-5) /lpf Urine Bacteria (Auto) (Negative) COVID-19 Eval Order Covid19 at [facility] SARS-CoV-2 (PCR) NEGATIVE (Negative) 07/21/20 Range/Units 20:17 WBC (4.8-10.8) K/uL RBC (4.2-5.4) M/uL Hgb (12.0-16.0) g/dL Hct (37-47) % MCV (80-100) fL MCH (25-34) pg MCHC (32-36) g/dL RDW Std Deviation (36.4-46.3) fL RDW Coeff of Nona (11.5-14.5) % Plt Count (130-400) K/uL MPV (7.4-10.4) fL Immature Gran % (Auto) % Neut % (Auto) % Lymph % (Auto) % [place] % (Auto) % Eos % (Auto) % Baso % (Auto) % Neut # (Auto) (1.4-6.5) K/uL Lymph # (Auto) (1.2-3.4) K/uL [place] # (Auto) (0.11-0.59) K/uL Eos # (Auto) (0-0.5) K/uL Baso # (Auto) (0-0.2) K/uL Immature Gran # (Auto) (0.00-0.02) K/uL PT (9.0-12.0) Seconds INR (0.9-1.1) APTT (21.0-31.0) Seconds PTT Ratio Sodium (136-145) mmol/L Potassium (3.5-5.1) mmol/L Chloride (98-107) mmol/L Carbon Dioxide (21-32) mmol/L Anion Gap (3-11) BUN (7-18) mg/dl Creatinine (0.6-1.2) mg/dl Est Cr Clr Drug Dosing Est GFR ( Amer) ml/min Est GFR (Non-Af Amer) ml/min BUN/Creatinine Ratio (10-20) Glucose (70-99) mg/dl Lactate (0.4-2.0) mmol/L Calcium (8.5-10.1) mg/dl Magnesium (1.8-2.4) mg/dl Total Bilirubin (0.2-1) mg/dl AST (15-37) U/L ALT (12-78) U/L Alkaline Phosphatase (45-117) U/L Total Protein (6.4-8.2) gm/dl Albumin (3.4-5.0) gm/dl Globulin (2.5-4.0) gm/dl Albumin/Globulin Ratio (0.9-2) Urine Color Yellow Urine Appearance Cloudy A (Clear) Urine pH 5.0 (4.5-7.5) Ur Specific [place] 1.016 (1.000-1.030) Urine Protein Negative (Negative) Urine Glucose (UA) Negative (Negative) Urine Ketones Negative (Negative) Urine Blood Negative (Negative) Urine Nitrite Negative (Negative) Urine Bilirubin Negative (Negative) Urine Urobilinogen Negative (Negative) Ur Leukocyte Esterase Negative (Negative) Urine WBC (Auto) 1-5 (0-5) /hpf Urine RBC (Auto) 0-4 (0-4) /hpf U Hyaline Cast (Auto) 0 (0-5) /lpf U Epithel Cells (Auto) 10-20 H (0-5) /lpf Urine Bacteria (Auto) Negative (Negative) COVID-19 Eval Order SARS-CoV-2 (PCR) (Negative) Administered Medications Sodium Chloride (Nss 1000ml) 1,000 mls @ 80 mls/hr IV .[id number] [facility] Stop: 07/22/20 11:44 Last Admin: 07/21/20 23:20 Dose: 80 mls/hr Documented by: [id number] Discontinued Medications Acetaminophen (Acetaminophen 500 Mg Tab) 1,000 mg PO NOW STA Stop: 07/21/20 19:19 Last Admin: 07/21/20 19:56 Dose: 1,000 mg Documented by: [id number] Ceftriaxone Sodium (Rocephin) 2,000 mg in 70 mls @ 140 mls/hr IV NOW STA Stop: 07/21/20 19:45 Last Infusion: 07/21/20 20:33 Dose: 0 mls/hr Documented by: [id number] Admin: 07/21/20 19:56 Dose: 140 mls/hr Documented by: [id number] Sodium Chloride (Nss 1000ml) 500 mls @ 999 mls/hr IV .Q31M ONE Stop: 07/21/20 21:00 Last Infusion: 07/21/20 21:33 Dose: 0 mls/hr Documented by: [id number] Admin: 07/21/20 20:34 Dose: 999 mls/hr Documented by: [id number] Vancomycin HCl (Vancomycin Hcl) 1,000 mg in 270 mls @ 200 mls/hr IV NOW STA Stop: 07/21/20 21:50 Last Admin: 07/21/20 22:25 Dose: Not Given Documented by: [id number] Daptomycin 475 mg/ Syringe 9.5 mls @ 4.75 mls/min IV NOW ONE; Protocol Stop: 07/21/20 22:08 Last Admin: 07/21/20 22:29 Dose: 4.75 mls/min Documented by: [id number] Imaging Data Radiologist's Impression: Chest X-Ray 07/21/20 19:16 SINGLE VIEW CHEST CLINICAL HISTORY: Sepsis. FINDINGS: An AP, portable, upright chest radiograph is compared to study dated 12/20/2018. The heart is enlarged noting atherosclerotic calcification of the thoracic aorta. There is pulmonary vascular congestion. There is bibasilar atelectasis. No large pleural effusion or pneumothorax is seen. The skeletal structures are osteopenic. The bony thorax is grossly intact. Arthritic change is seen in the shoulders. IMPRESSION: Cardiomegaly with mild pulmonary vascular congestion. ACT 112: Negative or not required by law. Electronically signed by: Salvatore Khan M.D. 07/21/2020 9:21 PM Discharge Plan Visit Data Chief Complaint: Illness Stated Complaint: ACHING, COLD, SHORTNEWW OF BREATH ED Provider: Anthony Flores Discharge Problem: Cellulitis Patient Disposition: Admitted As Inpatient Discharge Instructions Interventions: ED Discharge Assessment Last Done: 07/21/20 23:30 Discharge Problem: Cellulitis Qualifiers: Site of cellulitis: extremity Site of cellulitis of extremity: lower extremity Laterality: left Qualified Code(s): L03.116 - Cellulitis of left lower limb
[2020-07-22] MEDS: ACETAMINOPHEN 325 MG TAB PO PRN ×4 (02:09→20:17)
[2020-07-22] MEDS: LEVOTHYROXINE SODIUM 150 MCG TABLET PO SCH (04:58)
[2020-07-22] MEDS ORDERED: ACETAMINOPHEN 500 MG TAB PO STA (05:36)
[2020-07-22 06:11] LABS: Basophils # (auto) 0.02 K/uL (0-0.2); Basophils % (auto) 0.1 %; Eosinophils # (auto) 0.04 K/uL (0-0.5); Eosinophils % (auto) 0.2 %; Hematocrit (blood only) 25.6 % (37-47); Hemoglobin 8.7 g/dL (12.0-16.0); Immature Granulocytes # (auto) 0.06 K/uL (0.00-0.02); Immature Granulocytes % (auto) 0.3 %; Lymphocytes # (auto) 1.52 K/uL (1.2-3.4); Lymphocytes % (auto) 8.6 %; Mean Corpuscular Volume 88.3 fL (80-100); Mean Platelet Volume 9.3 fL (7.4-10.4); Monocytes # (auto) 0.94 K/uL (0.11-0.59); Monocytes % (auto) 5.3 %; Neutrophils # (auto) 15.07 K/uL (1.4-6.5); Neutrophils % (auto) 85.5 %; Platelet Count 253 K/uL (130-400); RDW Coefficient of Variation 13.9 % (11.5-14.5); RDW Standard Deviation 45.4 fL (36.4-46.3); White Blood Count 17.65 K/uL (4.8-10.8)
[2020-07-22 06:48] LABS: Albumin Level 2.6 gm/dl (3.4-5.0); Calcium 8.4 mg/dl (8.5-10.1); Creatinine Clr Calc Pharmacy 40.6 ml/min; Est GFR (African American) 43.3 ml/min; Est GFR (Non-African American) 37.3 ml/min; Potassium 4.5 mmol/L (3.5-5.1)
[2020-07-22 06:50] LABS: Albumin Globulin Ratio 0.8 (0.9-2); Bilirubin,Total 0.4 mg/dl (0.2-1); Globulin 3.4 gm/dl (2.5-4.0)
--- NOTE | 2020-07-22 07:05 | Ultrasound Report ---
US venous doppler LE LT CLINICAL HISTORY: Pt c/o LL swelling COMPARISON STUDY: No previous studies for comparison. FINDINGS: Real-time and color flow Doppler imaging were performed. Flow was seen within the femoral, popliteal and calf veins with no intraluminal thrombus demonstrated. The saphenous vein is patent. IMPRESSION: No evidence of deep venous thrombosis. ACT 112: Negative or not required by law. The above report was generated using voice recognition software. It may contain grammatical, syntax o r spelling errors. Electronically signed by: Zee Crum DO 07/22/2020 7:04 AM
[2020-07-22] MEDS: LIDOCAINE 5% 1 PATCH TD SCH (07:51)
[2020-07-22] MEDS: CHOLECALCIFEROL 1,000 UNITS 25 MCG TAB PO SCH (08:51)
[2020-07-22] MEDS: CEROVITE ADV FORMULA TAB PO SCH (08:51)
[2020-07-22] MEDS: OMEGA-3 (PURIFIED FISH OIL) 1 GM CAP PO SCH (08:51)
[2020-07-22] MEDS: PANTOprazole 40 MG TAB PO SCH (08:51)
[2020-07-22] MEDS: DULoxetine HCL 60 MG CAP PO SCH (08:51)
--- NOTE | 2020-07-22 13:15 | Electrocardiogram Report ---
Test Reason : Blood Pressure : / mmHG Vent. Rate : 071 BPM Atrial Rate : 071 BPM P-R Int : 172 ms QRS Dur : 118 ms QT Int : 394 ms P-R-T Axes : 037 -24 080 degrees QTc Int : 428 ms Sinus rhythm with marked sinus arrhythmia Left ventricular hypertrophy with QRS widening Nonspecific T wave abnormality Abnormal ECG When compared with ECG of 09-NOV-2018 20:00, No significant change was found Confirmed by Rajesh Soni ([id number]) on 07/22/2020 1:15:33 PM Referred By: REFERRED SELF Confirmed By:Rajesh Soni
[2020-07-22] MEDS: cefTRIAXone SODIUM 2,000 MG in DEXTROSE 5% 50 ML IV SCH (16:18)
[2020-07-22] MEDS ORDERED: DAPTOmycin 325 MG in SYRINGE 0 ML IV SCH (18:00)
--- NOTE | 2020-07-22 18:44 | Hospitalist Progress Note ---
Date of Service July 22, 2020 Assessment & Plan (1) Gram-negative bacteremia: Blood culture from 07/21 growing Gram(-) bacteria. - Given flank pain, I think kidney imaging is warranted. - Repeat blood cultures in the AM - Continue ceftriaxone - Stopped daptomycin on 07/22/2020 (2) Cellulitis of left lower extremity without foot: Do not see any sign of cellulitis on the left leg. She has a skin wound that appears uninfected. Bruising on left knee is from fall approx. 2 weeks ago and is improving per the patient. - Monitor left leg - Continue local wound care. (3) Obstructive sleep apnea: - CPAP at bedtime as needed (4) Hypertension: BP today is 175/75. - Hold lisinopril for JAMIE (5) CKD (chronic kidney disease), stage III: Creatinine 1.53 upon admission, with range 1.32-1.6. - Hold lisinopril and diclofenac - Given 1 L IV fluids - Monitor Cr -> Presently down to 1.35 (6) Hypothyroidism: TSH was 8.9 on 07/14/2020. - Continue levothyroxine 150 mcg daily (7) Acid reflux disease: - Continue omeprazole 40 mg daily (8) Depression with anxiety: Depression with anxiety/fibromyalgia. - Continue duloxetine, nortriptyline, and quetiapine. (9) Fibromyalgia: As above (10) DVT prophylaxis: Heparin 5,000 units SQ Q12h Admission and Anticipated Discharge Date Admission Date: July 21, 2020 Subjective Mostly still with back pain. Otherwise, legs feel ok. Reports no fevers/chills, chest pain, shortness of breath, abdominal pain, nausea, or vomiting. Physical Exam Constitutional: WD/WN, vitals as above Eyes: EOM intact bilaterally; no conjunctival abnormality ENMT: external ear and nose normal, oropharynx normal Neck: trachea midline, no thyromegaly normal visual inspection Respiratory: normal respiratory effort, lungs clear to auscultation no respiratory distress Cardiovascular: RRR, no murmur, no edema Gastrointestinal (Abdomen): Inspection/Auscultation: abdomen normal to inspection; abdomen not distended Musculoskeletal: no cyanosis or clubbing, extremities motor strength 5/5 Skin: no rashes, warm and dry + wound (Left bump wound.) Neurologic: moves all extremities and awake Psychiatric: Orientation: alert, oriented to person and cooperative Results & Data Results & Data (MN) Vital Signs (Past 12 Hours) Vital Signs Temp Pulse Resp BP Pulse Ox 07/22/20 16:16 36.7 C 72 18 177/76 H 97 07/22/20 07:33 37.1 C 80 18 135/67 94 PG Care Time/CCT Total # of Minutes Spent Total Time Spent with Patient: Total time spent is greater than 50% in coordination of care (as documented) at patient's floor/unit and/or counseling patient: Coding Level of Care Code 92045 Subseq Hosp Care Lvl 3 Diagnoses Gram-negative bacteremia R78.81 Cellulitis of left lower extremity without foot L03.116 Obstructive sleep apnea G47.33 Hypertension I10 CKD (chronic kidney disease), stage III N18.30 Hypothyroidism E03.9 Acid reflux disease K21.9 Depression with anxiety F41.8 Fibromyalgia M79.7 DVT prophylaxis Z29.9
[2020-07-22] MEDS ORDERED: NORMOSOL-R 500 ML IV ONE (18:45)
[2020-07-22] MEDS: ASPIRIN 81 MG ECTAB PO SCH (20:16)
[2020-07-22] MEDS: QUEtiapine FUMARATE 25 MG TABLET PO SCH (20:17)
[2020-07-22] MEDS: HEPARIN SOD 5,000 UNIT/0.5 ML VIAL SQ SCH (20:18)
[2020-07-22] MEDS ORDERED: OPTIRAY 320 100ml IV ONE (21:21)
[2020-07-22] MEDS: NORTRIPTYLINE HCL 25 MG CAP PO SCH (21:36)
[2020-07-23] MEDS: LEVOTHYROXINE SODIUM 150 MCG TABLET PO SCH (05:29)
[2020-07-23 05:42] LABS: Basophils # (auto) 0.02 K/uL (0-0.2); Basophils % (auto) 0.2 %; Eosinophils # (auto) 0.33 K/uL (0-0.5); Eosinophils % (auto) 3.2 %; Hematocrit (blood only) 24.7 % (37-47); Hemoglobin 8.2 g/dL (12.0-16.0); Immature Granulocytes # (auto) 0.01 K/uL (0.00-0.02); Immature Granulocytes % (auto) 0.1 %; Lymphocytes # (auto) 1.47 K/uL (1.2-3.4); Lymphocytes % (auto) 14.3 %; Mean Corpuscular Hgb Conc 33.2 g/dL (32-36); Mean Corpuscular Volume 90.5 fL (80-100); Mean Platelet Volume 9.2 fL (7.4-10.4); Monocytes % (auto) 8.8 %; Neutrophils # (auto) 7.55 K/uL (1.4-6.5); Neutrophils % (auto) 73.4 %; Platelet Count 264 K/uL (130-400); RDW Standard Deviation 46.1 fL (36.4-46.3); Red Blood Count 2.73 M/uL (4.2-5.4); White Blood Count 10.28 K/uL (4.8-10.8)
[2020-07-23 06:20] LABS: Albumin Globulin Ratio 0.7 (0.9-2); Albumin Level 2.5 gm/dl (3.4-5.0); BUN Creatinine Ratio 12.4 (10-20); Bilirubin,Total 0.2 mg/dl (0.2-1); Calcium 8.7 mg/dl (8.5-10.1); Creatinine Clr Calc Pharmacy 47.7 ml/min; Est GFR (African American) 52.6 ml/min; Est GFR (Non-African American) 45.4 ml/min; Globulin 3.8 gm/dl (2.5-4.0); Magnesium 2.4 mg/dl (1.8-2.4); Potassium 4.4 mmol/L (3.5-5.1); Total Protein 6.3 gm/dl (6.4-8.2)
[2020-07-23] MEDS: DULoxetine HCL 60 MG CAP PO SCH (08:38)
[2020-07-23] MEDS: CHOLECALCIFEROL 1,000 UNITS 25 MCG TAB PO SCH (08:38)
[2020-07-23] MEDS: CEROVITE ADV FORMULA TAB PO SCH (08:39)
[2020-07-23] MEDS: LIDOCAINE 5% 1 PATCH TD SCH (08:39)
[2020-07-23] MEDS: OMEGA-3 (PURIFIED FISH OIL) 1 GM CAP PO SCH (08:39)
[2020-07-23] MEDS: PANTOprazole 40 MG TAB PO SCH (08:39)
[2020-07-23] MEDS: HEPARIN SOD 5,000 UNIT/0.5 ML VIAL SQ SCH ×2 (08:40→21:34)
[2020-07-23] MEDS: ACETAMINOPHEN 325 MG TAB PO PRN ×3 (08:43→22:43)
--- NOTE | 2020-07-23 09:02 | CT Scan Report ---
CT SCAN OF THE ABDOMEN AND PELVIS WITH IV CONTRAST CLINICAL HISTORY: Flank pain. Bacteremia. COMPARISON STUDY: Abdominal CT dated 04/05/2017. TECHNIQUE: Following the IV administration of 84 cc of Optiray 320, CT scan of the abdomen and pelvi s is performed from the lung bases to the proximal femora. Images are reviewed in the axial, sagittal , and coronal planes. IV contrast was administered without complication. Oral contrast was utilized. A dose lowering technique was utilized adhering to the principles of ALARA. CT DOSE: 1083.06 mGycm FINDINGS: Lung bases: The heart is normal in size and without pericardial effusion. There are trace pleural eff usions with dependent atelectasis. Liver: The contrast-enhanced liver is normal in size, contour, and attenuation. There is no intrahepa tic biliary ductal dilatation. The hepatic veins and portal veins are patent. Gallbladder: Surgically absent noting clips in the gallbladder fossa. Spleen: Normal in size and attenuation. Pancreas: Atrophic and grossly unremarkable. Adrenal glands: A 1.5 cm right adrenal nodule is unchanged. The left adrenal gland is normal in appea nuno. Kidneys: The contrast enhanced kidneys are atrophic and without hydronephrosis. The kidneys enhance s ymmetrically. There is mild and bilateral symmetric perinephric stranding. A 10 mm exophytic cyst lyric ses from the left upper pole. Abdominal vasculature: The abdominal aorta is normal in course and caliber noting mild to moderate at herosclerotic calcification. Bowel: There is no bowel obstruction. Enteric contrast reaches the left colon. The appendix is not v isualized. Peritoneum: There is no intraperitoneal free air or abdominal ascites. Lymphadenopathy: None. Pelvic viscera: The bladder is largely decompressed and grossly unremarkable. The uterus is surgicall y absent. No adnexal lesion is seen. Trace free fluid is seen in the pelvis. There is soft tissue inf lammation identified in the left groin. No soft tissue gas is identified. Skeletal structures: The skeletal structures are osteopenic. There is moderate to advanced lumbosacra l spondylosis. No lytic or blastic lesions are seen. IMPRESSION: 1. There is nonspecific soft tissue infiltration and edema identified in the left groin. Clinical cor relation will be required. 2. There is trace nonspecific free fluid in the pelvis. 3. Mild and symmetric perinephric stranding is nonspecific. Correlate with urinalysis. 4. Trace pleural effusions. 5. Additional findings as above. ACT 112: Negative or not required by law. Electronically signed by: Salvatore Khan M.D. 07/23/2020 9:01 AM
--- NOTE | 2020-07-23 13:54 | Urology Consultation ---
Date of Consultation July 23, 2020 Assessment & Plan (1) Gram-negative bacteremia: (2) Bilateral back pain: 79yo F admitted with LLE cellulitis with complaints of bilateral back pain in the setting of gram-negative bacteremia. - Hospital course, CT imaging, labs, and past medical hx reviewed. - Plan of care and imaging reviewed with Dr. Greenberg, on-call urologist. - She is afebrile, non-toxic appearing. - Labs reviewed, Wbc 10.28 and creatinine 1.14 today. - CTAP completed today given her complaints of bilateral back pain in the setting of gram-negative bacteremia. - CT noted nonspecific mild and symmetric perinephric stranding; No hydronephrosis. - Imaging findings are not overly convincing for pyelonephritis given negative urinalysis. - Blood cultures with gram negative bacilli, repeat cultures pending. - ID consulted for further evaluation of bacteremia without clear source. - No acute intervention warranted at this time. - Recommend continue supportive care and antibiotic therapy, follow cultures. - Will arrange outpatient follow-up with our service following discharge. - Patient agreeable to plan, all questions were answered. Thank you for allowing us to participate in the acute care of Mrs. Guzman. Please reconsult us with additional questions, concerns or changes in patient status. History of Present Illness Reason for Consultation: Pyelonephritis without positive UA Attending Physician: Kaleb Borrero MD History of Present Illness The patient is an 79yo F admitted with cellulitis of the left lower extremity with complaints of b/l back pain in the setting of gram-negative bacteremia. PMHx significant for VALERIA, osteoarthritis, obesity, hypothyroidism, fibromyalgia, chronic back pain, GERD, anemia, hypertension, depression with anxiety, chronic interstitial cystitis, hysterectomy. The patient presented to [facility] ER on 07/21 with complaints of pain to her LLE, weakness, fever, and chills for several days. The patient reported she had tripped over something several days ago and bumped her left lower leg. She stated that the extremity began to develop redness and warmth. On presentation to the ER, she was afebrile, wbc 19.92, hgb 9.2, creatinine 1.53. Her urinalysis was negative. She was given IV antibiotics and admitted for further evaluation. During hospitalization, she reported bilateral flank/back pain. A CTAP was completed and noted mild and symmetric perinephric stranding. Blood cultures with gram-negative bacilli. Urology consulted for possible pyelonephritis without positive urinalysis. CT abdomen pelvis IMPRESSION: 1. There is nonspecific soft tissue infiltration and edema identified in the left groin. Clinical correlation will be required. 2. There is trace nonspecific free fluid in the pelvis. 3. Mild and symmetric perinephric stranding is nonspecific. Correlate with urinalysis. 4. Trace pleural effusions. Patient examined at bedside this afternoon. Awake, alert, sitting in bedside chair on arrival. She is afebrile, Wbc 10.28 and Cr 1.14. Blood cultures preliminary gram negative bacilli, repeat pending. On IV ceftriaxone. She reports her bilateral back pain has improved some. She has a lidocaine patch to her left lower back. She was given Tylenol recently for pain. She denies any fevers or chills today. Tolerating diet, no nausea or vomiting. She denies hematuria and dysuria. Feels she is emptying her bladder well. Stream good. Some urinary frequency. Occasional urgency. No hesitancy. No need to push or strain. She denies a hx of recurrent UTI. Denies any recent urinary infections. Denies previous kidney infections. She does report a hx of kidney stones many years ago. She has previously followed with our service, last seen by Dr. Benítez in Nov 2017. Hx of chronic IC, manages with conservative measures/diet modifications. Offers no additional complaints or concerns today Allergies Allergy/AdvReac Type Severity Reaction Status Date / Time Sulfa (Sulfonamide Allergy Mild Hives Verified 07/21/20 20:35 Antibiotics) fluoxetine [From Prozac] AdvReac Unknown Opposite Verified 07/21/20 20:35 effect Home Medications Medication Instructions Recorded Confirmed Type acetaminophen 650 mg 1,300 mg PO BID PRN tab 10/20/18 07/21/20 History tablet,extended release cholecalciferol (vitamin D3) 25 1,000 unit PO QAM cap 10/20/18 07/21/20 History mcg (1,000 unit) capsule flaxseed oil 1,000 mg capsule 1,000 mg PO QAM cap 10/20/18 07/21/20 History aspirin 81 mg PO QPM 11/09/18 07/21/20 History multivitamin-ferrous 1 tab PO QAM 11/16/18 07/21/20 History fumarate-folic acid 18 mg-400 mcg tablet miscellaneous medical supply #1 ea 08/13/19 07/10/20 Rx albuterol sulfate 90 mcg/actuation 1 puff INHALATION Q4H PRN #18 gm 09/10/19 07/21/20 Rx aerosol inhaler diclofenac sodium 75 mg 75 mg PO Q12H #60 tab 01/30/20 07/21/20 Rx tablet,delayed release duloxetine 60 mg capsule,delayed 60 mg PO DAILY #30 cap 02/27/20 07/21/20 Rx release quetiapine 25 mg tablet 75 mg PO HS #90 tab 03/07/20 07/21/20 Rx nortriptyline 75 mg capsule 150 mg PO HS #60 cap 04/17/20 07/21/20 Rx lisinopril 20 mg tablet 20 mg PO QAM #90 tab 05/28/20 07/21/20 Rx omeprazole 40 mg capsule,delayed 40 mg PO DAILY #90 cap 05/28/20 07/21/20 Rx release levothyroxine 150 mcg tablet 150 mcg PO QAM #90 tab 07/18/20 07/21/20 Rx Patient History Medical History Adrenal gland cyst Anemia Aortic regurgitation follows with Dr. 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 Ryan Sleep apnea cpap Spinal stenosis Surgical History H/O: hysterectomy KEMAR, BSO History of appendectomy (~1981) History of cataract surgery bilt History of cholecystectomy History of colonoscopy with polypectomy recent 11/12/2019 History of dilatation and curettage History of esophagogastroduodenoscopy (EGD) recent 11/12/2019 History of lumpectomy of right breast benign History of meniscectomy of left knee History of tooth extraction History of total left knee replacement (TKR) History of total right knee replacement (TKR) Hx of tonsillectomy Family History Mother Osteoporosis CHF (congestive heart failure) Heart disease Cardiac disorder Myocardial infarction Lung disease Hypertension Father Alcohol abuse Abdominal aortic aneurysm Cardiac disorder Hypertension Brother Liver cancer Prostate cancer Abdominal aortic aneurysm Cardiac disorder Hypertension Aunt Breast cancer Other No family history of adverse response to anesthesia Denies family history of Colon cancer Ovarian cancer Social History Smoking Status: Never smoker Second Hand Exposure: Yes (parents smoked); Hx Alcohol Use: Yes Alcohol type: wine Hx Substance Use: No Preferred Language: [place] Zealander Communication Ability: Effective Visual Impairment: No Limitations Hearing Ability: Normal Glass Glazier Required: No Beliefs That Will Affect Care: None marital status: Current Living Situation: Family Current Living Situation Comment: son lives with her current occupational status: retired Other Information That Helps Us Care for You: No Feels Safe at Home: Yes Safety Concerns: Feels Safe At This Time Childhood Exposure to Second-Hand Smoke: Yes Dental Care, Regularly: Yes Physical Activity Frequency: 5-6 Times per Week Seatbelt Use: always Sunscreen Use: Yes Assistive Devices: None Assistive Devices Comment: reading glasses Review of Systems Review of Systems: All systems reviewed & are unremarkable except as noted in HPI & below Physical Exam Constitutional: well developed and well nourished; no acute distress and not ill appearing Neck: normal visual inspection Respiratory: normal respiratory effort and able to speak in complete sentences; no labored breathing and no audible wheezes Gastrointestinal (Abdomen): Percussion/Palpation: abdomen soft; abdomen nontender and no guarding Musculoskeletal: Head/Neck/Chest: normocephalic Skin: Dressing to left henry c/d/i Neurologic: awake Psychiatric: A+Ox3, euthymic affect Genitourinary: no CVA tenderness Results & Data ([facility]) Vital Signs (Past 12 Hours) Vital Signs Temp Pulse Resp BP Pulse Ox 07/23/20 07:35 37.1 C 76 18 158/69 H 95 PG Care Time/CCT Total # of Minutes Spent Total Time Spent with Patient: Total time spent is greater than 50% in coordination of care (as documented) at patient's floor/unit and/or counseling patient: Coding Level of Care Code 52745 Initial Inpt Care Lvl 2 Diagnoses Gram-negative bacteremia R78.81 Bilateral back pain M54.9
[2020-07-23] MEDS: cefTRIAXone SODIUM 2,000 MG in DEXTROSE 5% 50 ML IV SCH (15:33)
--- NOTE | 2020-07-23 18:57 | Hospitalist Progress Note ---
Date of Service July 23, 2020 Assessment & Plan (1) Gram-negative bacteremia: Blood culture from 07/21 growing Gram(-) bacteria. Not speciating yet. - CT a/p on 07/22 showed mild, bilateral perinephric stranding - Discussed with urology on 07/23; they do not think this is pyelonephritis. - Continue ceftriaxone - Stopped daptomycin on 07/22/2020 - ID consulted given she has bacteremia without a clear source. CT also shows non-specific soft tissue infiltration and edema identified in the left groin. Will need to check this area as well. (2) Cellulitis of left lower extremity without foot: Do not see any sign of cellulitis on the left leg. She has a skin wound that appears uninfected. Bruising on left knee is from fall approx. 2 weeks ago and is improving per the patient. - Monitor left leg - Continue local wound care. (3) Obstructive sleep apnea: - CPAP at bedtime as needed (4) Hypertension: BP today is 160/90. - Held lisinopril for JAMIE; restart tomorrow (5) CKD (chronic kidney disease), stage III: Creatinine 1.53 upon admission, with range 1.32-1.6. Pre-renal; improved with fluids. - Held lisinopril and diclofenac; restarted lisinopril - Monitor Cr -> Presently down to 1.15 today. (6) Hypothyroidism: TSH was 8.9 on 07/14/2020. - Continue levothyroxine 150 mcg daily (7) Acid reflux disease: - Continue omeprazole 40 mg daily (8) Depression with anxiety: Depression with anxiety/fibromyalgia. - Continue duloxetine, nortriptyline, and quetiapine. (9) Fibromyalgia: As above (10) DVT prophylaxis: Heparin 5,000 units SQ Q12h Admission and Anticipated Discharge Date Admission Date: July 21, 2020 Subjective Less back pain today. She woke up with quite a bit, but by the afternoon is feeling much better. Reports no fevers/chills, chest pain, shortness of breath, abdominal pain, nausea, or vomiting. Physical Exam Constitutional: WD/WN, vitals as above Eyes: EOM intact bilaterally; no conjunctival abnormality ENMT: external ear and nose normal, oropharynx normal Neck: trachea midline, no thyromegaly normal visual inspection Respiratory: normal respiratory effort, lungs clear to auscultation no respiratory distress Cardiovascular: RRR, no murmur, no edema Gastrointestinal (Abdomen): Inspection/Auscultation: abdomen normal to inspection and normal bowel sounds; abdomen not distended Musculoskeletal: no cyanosis or clubbing, extremities motor strength 5/5 Skin: no rashes, warm and dry + wound (Left bump wound.) Neurologic: moves all extremities and awake Psychiatric: Orientation: alert, oriented to person and cooperative Genitourinary: no CVA tenderness (Mild L>R) Results & Data Results & Data ([facility]) Vital Signs (Past 12 Hours) Vital Signs Temp Pulse Resp BP Pulse Ox 07/23/20 16:07 36.8 C 61 16 159/93 H 97 07/23/20 07:35 37.1 C 76 18 158/69 H 95 PG Care Time/CCT Total # of Minutes Spent Total Time Spent with Patient: Total time spent is greater than 50% in coordination of care (as documented) at patient's floor/unit and/or counseling patient: Coding Level of Care Code 62304 Subseq Hosp Care Lvl 3 Diagnoses Gram-negative bacteremia R78.81 Cellulitis of left lower extremity without foot L03.116 Obstructive sleep apnea G47.33 Hypertension I10 CKD (chronic kidney disease), stage III N18.30 Hypothyroidism E03.9 Acid reflux disease K21.9 Depression with anxiety F41.8 Fibromyalgia M79.7 DVT prophylaxis Z29.9
[2020-07-23] MEDS: QUEtiapine FUMARATE 25 MG TABLET PO SCH (20:04)
[2020-07-23] MEDS: NORTRIPTYLINE HCL 25 MG CAP PO SCH (21:33)
[2020-07-23] MEDS: ASPIRIN 81 MG ECTAB PO SCH (21:33)
[2020-07-24] MEDS: LEVOTHYROXINE SODIUM 150 MCG TABLET PO SCH (06:10)
[2020-07-24 06:15] LABS: Hematocrit (blood only) 24.6 % (37-47); Hemoglobin 8.2 g/dL (12.0-16.0); Mean Corpuscular Hemoglobin 30.1 pg (25-34); Mean Corpuscular Hgb Conc 33.3 g/dL (32-36); Mean Corpuscular Volume 90.4 fL (80-100); Mean Platelet Volume 8.9 fL (7.4-10.4); Platelet Count 266 K/uL (130-400); RDW Coefficient of Variation 13.9 % (11.5-14.5); RDW Standard Deviation 46.3 fL (36.4-46.3); Red Blood Count 2.72 M/uL (4.2-5.4)
[2020-07-24 07:03] LABS: BUN Creatinine Ratio 14.1 (10-20); Calcium 8.7 mg/dl (8.5-10.1); Creatinine Clr Calc Pharmacy 51.3 ml/min; Est GFR (African American) 57.4 ml/min; Est GFR (Non-African American) 49.6 ml/min; Magnesium 2.7 mg/dl (1.8-2.4); Potassium 4.3 mmol/L (3.5-5.1)
[2020-07-24] MEDS: lisinopril 20 MG TAB PO SCH (08:06)
[2020-07-24] MEDS: HEPARIN SOD 5,000 UNIT/0.5 ML VIAL SQ SCH ×2 (08:07→20:22)
[2020-07-24] MEDS: CHOLECALCIFEROL 1,000 UNITS 25 MCG TAB PO SCH (08:07)
[2020-07-24] MEDS: CEROVITE ADV FORMULA TAB PO SCH (08:08)
[2020-07-24] MEDS: OMEGA-3 (PURIFIED FISH OIL) 1 GM CAP PO SCH (08:08)
[2020-07-24] MEDS: PANTOprazole 40 MG TAB PO SCH (08:09)
[2020-07-24] MEDS: DULoxetine HCL 60 MG CAP PO SCH (08:09)
[2020-07-24] MEDS: LIDOCAINE 5% 1 PATCH TD SCH (08:14)
[2020-07-24] MEDS: ACETAMINOPHEN 325 MG TAB PO PRN ×2 (13:56→20:20)
[2020-07-24] MEDS: cefTRIAXone SODIUM 2,000 MG in DEXTROSE 5% 50 ML IV SCH (15:40)
--- NOTE | 2020-07-24 16:42 | XRay Report ---
LEFT KNEE 2 VIEWS HISTORY: Left knee effusion COMPARISON: None. FINDINGS: There is a left total knee arthroplasty. No fracture or dislocation. There is anterior soft tissue swelling within the left knee. There is a trace left knee effusion. No radiopaque foreign bod ies. IMPRESSION: 1. Trace left knee effusion. 2. Anterior soft tissue swelling within the left knee. 3. No fractures. ACT 112: Negative or not required by law. Electronically signed by: Virgil James M.D. 07/24/2020 4:41 PM
--- NOTE | 2020-07-24 17:46 | Orthopedic Consultation ---
Date of Consultation July 24, 2020 Assessment & Plan (1) Prepatellar bursitis of left knee: Emerging septic prepatellar bursitis left knee. Patient has positive blood cultures for Pasteurella multocida. Infection could have developed into her prepatellar bursa after previous distal cellulitis. Clinically she has noninfected knee joint as she has no pain at all in the joint. She has a small effusion only. If no improvement with appropriate antibiotics tendon incision drainage prepatellar bursa and prepatellar bursectomy would be indicated. Recommending n.p.o. after midnight and have aspiration kit to bedside. History of Present Illness Attending Physician: Donovan Hernadez History of Present Illness 79-year-old female history of bilateral knee replacements by Dr. Alvarez. Patient noted some increased warmth anterior knee and concerned about infection. Patient had a history of a superficial skin laceration and the lower leg cellulitis treated with IV antibiotics but that is improved but now the knee is having some increased warmth in the pretibial area prepatellar area. Allergies Allergy/AdvReac Type Severity Reaction Status Date / Time Sulfa (Sulfonamide Allergy Mild Hives Verified 07/21/20 20:35 Antibiotics) fluoxetine [From Prozac] AdvReac Unknown Opposite Verified 07/21/20 20:35 effect Home Medications Medication Instructions Recorded Confirmed Type acetaminophen 650 mg 1,300 mg PO BID PRN tab 10/20/18 07/21/20 History tablet,extended release cholecalciferol (vitamin D3) 25 1,000 unit PO QAM cap 10/20/18 07/21/20 History mcg (1,000 unit) capsule flaxseed oil 1,000 mg capsule 1,000 mg PO QAM cap 10/20/18 07/21/20 History aspirin 81 mg PO QPM 11/09/18 07/21/20 History multivitamin-ferrous 1 tab PO QAM 11/16/18 07/21/20 History fumarate-folic acid 18 mg-400 mcg tablet miscellaneous medical supply #1 ea 08/13/19 07/10/20 Rx albuterol sulfate 90 mcg/actuation 1 puff INHALATION Q4H PRN #18 gm 09/10/19 07/21/20 Rx aerosol inhaler diclofenac sodium 75 mg 75 mg PO Q12H #60 tab 01/30/20 07/21/20 Rx tablet,delayed release duloxetine 60 mg capsule,delayed 60 mg PO DAILY #30 cap 02/27/20 07/21/20 Rx release quetiapine 25 mg tablet 75 mg PO HS #90 tab 03/07/20 07/21/20 Rx nortriptyline 75 mg capsule 150 mg PO HS #60 cap 04/17/20 07/21/20 Rx lisinopril 20 mg tablet 20 mg PO QAM #90 tab 05/28/20 07/21/20 Rx omeprazole 40 mg capsule,delayed 40 mg PO DAILY #90 cap 05/28/20 07/21/20 Rx release levothyroxine 150 mcg tablet 150 mcg PO QAM #90 tab 07/18/20 07/21/20 Rx Patient History Medical History Adrenal gland cyst Anemia Aortic regurgitation follows with Dr. 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 Ryan Sleep apnea cpap Spinal stenosis Surgical History H/O: hysterectomy KEMAR, BSO History of appendectomy (~1981) History of cataract surgery bilt History of cholecystectomy History of colonoscopy with polypectomy recent 11/12/2019 History of dilatation and curettage History of esophagogastroduodenoscopy (EGD) recent 11/12/2019 History of lumpectomy of right breast benign History of meniscectomy of left knee History of tooth extraction History of total left knee replacement (TKR) History of total right knee replacement (TKR) Hx of tonsillectomy Family History Mother Osteoporosis CHF (congestive heart failure) Heart disease Cardiac disorder Myocardial infarction Lung disease Hypertension Father Alcohol abuse Abdominal aortic aneurysm Cardiac disorder Hypertension Brother Liver cancer Prostate cancer Abdominal aortic aneurysm Cardiac disorder Hypertension Aunt Breast cancer Other No family history of adverse response to anesthesia Denies family history of Colon cancer Ovarian cancer Social History Smoking Status: Never smoker Second Hand Exposure: Yes (parents smoked); Hx Alcohol Use: Yes Alcohol type: wine Hx Substance Use: No Preferred Language: Divehi Communication Ability: Effective Visual Impairment: No Limitations Hearing Ability: Normal Casing Trimmer Required: No Beliefs That Will Affect Care: None marital status: Current Living Situation: Family Current Living Situation Comment: son lives with her current occupational status: retired Other Information That Helps Us Care for You: No Feels Safe at Home: Yes Safety Concerns: Feels Safe At This Time Childhood Exposure to Second-Hand Smoke: Yes Dental Care, Regularly: Yes Physical Activity Frequency: 5-6 Times per Week Seatbelt Use: always Sunscreen Use: Yes Assistive Devices: None Assistive Devices Comment: reading glasses Review of Systems Review of Systems: Currently feeling well no fever or chills Physical Exam Physical Exam: Left knee exam demonstrates incision from knee replacement tu ranjeet. No drainage. She does have a small knee joint effusion and the knee is not painful at all with any range of motion actively or passively. She is good range of motion and stability of the knee. Her extensor mechanism intact. There is some erythema around the prepatellar area sort of diffuse and there is some increased warmth there. There is some bogginess and thickening of the prepatellar bursa but not clearly a large prepatellar bursal effusion. Her opposite knee demonstrates normal warmth no swelling and benign incision. Results & Data ([facility]) Vital Signs (Past 12 Hours) Vital Signs Temp Pulse Resp BP Pulse Ox 07/24/20 15:36 36.7 C 98 H 18 164/91 H 95 07/24/20 07:40 36.7 C 57 L 16 155/82 H 98 07/24/20 06:11 133/70 X-ray demonstrates a well aligned total knee replacement on left knee no loosening or lucencies trace effusion.
[2020-07-24] MEDS: ASPIRIN 81 MG ECTAB PO SCH (20:22)
[2020-07-24] MEDS: QUEtiapine FUMARATE 25 MG TABLET PO SCH (20:22)
[2020-07-24] MEDS: NORTRIPTYLINE HCL 25 MG CAP PO SCH (21:14)
--- NOTE | 2020-07-24 21:41 | Hospitalist Progress Note ---
Date of Service July 24, 2020 Assessment & Plan (1) Gram-negative bacteremia: Blood culture from 07/21 growing Gram(-) bacteria. Not speciating yet. - CT a/p on 07/22 showed mild, bilateral perinephric stranding - Discussed with urology on 07/23; they do not think this is pyelonephritis. - Continue ceftriaxone - Stopped daptomycin on 07/22/2020 - ID consulted given she has bacteremia without a clear source. CT also shows non-specific soft tissue infiltration and edema identified in the left groin. Will need to check this area as well. -will continue ceftriaxone as there is question that the left knee may be infected. -Given the hardware implanted, will consult [facility], to evaluate. (2) Cellulitis of left lower extremity without foot: Do not see any sign of cellulitis on the left leg. She has a skin wound that appears uninfected. Bruising on left knee is from fall approx. 2 weeks ago and is improving per the patient. - Monitor left leg - Continue local wound care. (3) Obstructive sleep apnea: - CPAP at bedtime as needed (4) Hypertension: BP today is 160/90. - HBP at goal (5) CKD (chronic kidney disease), stage III: Creatinine 1.53 upon admission, with range 1.32-1.6. Pre-renal; improved with fluids. - Held lisinopril and diclofenac; restarted lisinopril - Monitor Cr -> Presently down (6) Hypothyroidism: TSH was 8.9 on 07/14/2020. - Continue levothyroxine 150 mcg daily (7) Acid reflux disease: - Continue omeprazole 40 mg daily (8) Depression with anxiety: Depression with anxiety/fibromyalgia. - Continue duloxetine, nortriptyline, and quetiapine. (9) Fibromyalgia: As above (10) DVT prophylaxis: Heparin 5,000 units SQ Q12h Admission and Anticipated Discharge Date Admission Date: July 21, 2020 Subjective Patient reports feeling well. She has no new complaints except for swelling on her left knee Review of Systems Review of Systems: The patient denies chest pain, palpitations, shortness of breath, dyspnea on exertion, cough, sore throat, fevers, chills, sweats, nausea, vomiting, diarrhea , constipation, abdominal pain, pelvic pain, blood in urine or stool, dysuria, urinary frequency or urgency, lightheadedness, dizziness, headache, memory loss, loss of consciousness, abnormal bruising or bleeding, imbalance, focal or generalized weakness, numbness or tingling in arms, generalized arthralgias or myalgias, back or neck pain, or night sweats. The review of systems is otherwise negative other than for that already noted above, and at least 10 systems have been reviewed. Physical Exam Physical Exam: Constitutional: WD/WN, vitals as above Eyes: EOM intact bilaterally; no conjunctival abnormality ENMT: external ear and nose normal, oropharynx normal Neck: trachea midline, no thyromegaly normal visual inspection Respiratory: normal respiratory effort, lungs clear to auscultation no respiratory distress Cardiovascular: RRR, no murmur, no edema Gastrointestinal (Abdomen): Inspection/Auscultation: abdomen normal to inspection and normal bowel sounds; abdomen not distended Musculoskeletal: no cyanosis or clubbing, extremities motor strength 5/5; swelling around left knee, warm to touch, mild erythema. Skin: no rashes, warm and dry + wound (Left bump wound.) Neurologic: moves all extremities and awake Psychiatric: Orientation: alert, oriented to person and cooperative Genitourinary: no CVA tenderness (Mild L>R) Results & Data Results & Data ([facility]) Vital Signs (Past 12 Hours) Vital Signs Temp Pulse Resp BP Pulse Ox 07/24/20 15:36 36.7 C 98 H 18 164/91 H 95 PG Care Time/CCT Total # of Minutes Spent Total Time Spent with Patient: Total time spent is greater than 50% in coordination of care (as documented) at patient's floor/unit and/or counseling patient: Coding Level of Care Code 22135 Subseq Hosp Care Lvl 3 Diagnoses Gram-negative bacteremia R78.81 Cellulitis of left lower extremity without foot L03.116 Obstructive sleep apnea G47.33 Hypertension I10 CKD (chronic kidney disease), stage III N18.30 Hypothyroidism E03.9 Acid reflux disease K21.9 Depression with anxiety F41.8 Fibromyalgia M79.7 DVT prophylaxis Z29.9 Time Spent (min) 35
[2020-07-25] MEDS: LEVOTHYROXINE SODIUM 150 MCG TABLET PO SCH ×2 (05:49→11:55)
[2020-07-25] MEDS: LIDOCAINE 5% 1 PATCH TD SCH (08:29)
[2020-07-25] MEDS: HEPARIN SOD 5,000 UNIT/0.5 ML VIAL SQ SCH (08:30)
--- NOTE | 2020-07-25 11:29 | Orthopedic Progress Note ---
Date of Service July 25, 2020 Assessment & Plan (1) Prepatellar bursitis of left knee: Overall improvement of emerging septic prepatellar bursitis left knee. No aspiration at this time. Continue current antibiotics. Orthopedics will sign off at this time. Please call with any other further questions. Admission and Anticipated Discharge Date Admission Date: July 21, 2020 Subjective Patient sitting up in her chair at the bedside. Awake and alert. No complaints this morning. She is worried that she would need to have her bursa aspirated today. Physical Exam Physical Exam: Examination of her left lower extremity reveals a near normal looking knee. She has only the slightest amount of erythema over the prepatellar area. I cannot appreciate any fluctuance in or around the prepatellar bursa area. She is essentially nontender in this area as well. She has almost no swelling in this area as well. ROM of her knee is within normal limits and is nontender during range of motion and or weightbearing. No need for an aspiration at this time. Results & Data ([facility]) Vital Signs (Past 12 Hours) Vital Signs Temp Pulse Pulse Pulse Resp BP Pulse Ox 07/25/20 07:25 36.6 C 53 L 18 134/77 98 07/25/20 03:37 50 L 14 96 07/24/20 23:40 36.8 C 56 L 20 168/58 H 94
[2020-07-25] MEDS: ACETAMINOPHEN 325 MG TAB PO PRN (11:54)
[2020-07-25] MEDS: lisinopril 20 MG TAB PO SCH (11:56)
[2020-07-25] MEDS: DULoxetine HCL 60 MG CAP PO SCH (11:56)
[2020-07-25] MEDS: CHOLECALCIFEROL 1,000 UNITS 25 MCG TAB PO SCH (11:57)
[2020-07-25] MEDS: CEROVITE ADV FORMULA TAB PO SCH (11:58)
[2020-07-25] MEDS: PANTOprazole 40 MG TAB PO SCH (11:58)
[2020-07-25] MEDS: OMEGA-3 (PURIFIED FISH OIL) 1 GM CAP PO SCH (11:58)
[2020-07-25] MEDS: cefTRIAXone SODIUM 2,000 MG in DEXTROSE 5% 50 ML IV SCH (15:42)
--- NOTE | 2020-07-30 20:50 | Discharge Summary ---
Date of Service July 25, 2020 Admission HPI Per Admitting Provider The patient is an 79-year-old female with a past medical history including VALERIA, osteoarthritis, obesity, hypothyroidism, fibromyalgia, chronic back pain, GERD, anemia, hypertension, depression with anxiety and chronic interstitial cystitis. The patient reports that she had tripped over something on the floor several days ago, and bumped her left leg. Since that time, her left lower extremity began to develop redness and warmth, which is has extended from the lateral surface distal one third of her leg up to her knee. Work-up in the emergency department including venous Doppler which was negative for DVT. Patient was given daptomycin IV and ceftriaxone IV, and normal saline 500 cc while in the ED. Principal Diagnosis gram negative bacteremia Discharge Exam Constitutional: WD/WN, vitals as above Eyes: EOM intact bilaterally; no conjunctival abnormality ENMT: external ear and nose normal, oropharynx normal Neck: trachea midline, no thyromegaly normal visual inspection Respiratory: normal respiratory effort, lungs clear to auscultation no respiratory distress Cardiovascular: RRR, no murmur, no edema Gastrointestinal (Abdomen): Inspection/Auscultation: abdomen normal to inspection and normal bowel sounds; abdomen not distended Musculoskeletal: no cyanosis or clubbing, extremities motor strength 5/5; swelling around left knee, warm to touch, mild erythema. Skin: no rashes, warm and dry + wound (Left bump wound.) Neurologic: moves all extremities and awake Psychiatric: Orientation: alert, oriented to person and cooperative Genitourinary: no CVA tenderness (Mild L>R) Discharge Data Allergies Allergy/AdvReac Type Severity Reaction Status Date / Time Sulfa (Sulfonamide Allergy Mild Hives Verified 07/21/20 20:35 Antibiotics) fluoxetine [From Prozac] AdvReac Unknown Opposite Verified 07/21/20 20:35 effect Consultations 07/21/20 21:38 ED Decision to Admit Stat 07/23/20 12:23 Consult Urology Routine 07/23/20 12:24 Consult Infectious Diseases Routine 07/24/20 14:44 Consult Orthopedic Surgery Routine Ordered Studies 07/21/20 19:18 US venous doppler LE LT Urgent 07/22/20 18:44 CT abd pelvis oral and IV con Routine Hospital Course (1) Gram-negative bacteremia: Blood culture from 07/21 growing Gram(-) bacteria. Not speciating yet. - CT a/p on 07/22 showed mild, bilateral perinephric stranding - Discussed with urology on 07/23; they do not think this is pyelonephritis. - Continue ceftriaxone - Stopped daptomycin on 07/22/2020 - ID consulted given she has bacteremia without a clear source. CT also shows non-specific soft tissue infiltration and edema identified in the left groin. Will need to check this area as well. Day prior to discharge: -will continue ceftriaxone as there is question that the left knee may be infected. -Given the hardware implanted, will consult [facility], to evaluate. Day of discharge: Appreicate input from patellar bursitis of left knee: Overall improvement of emerging septic prepatellar bursitis left knee. No aspiration at this time. Continue current antibiotics. Orthopedics will sign off at this time. Please call with any other further questions. (2) Cellulitis of left lower extremity without foot: Do not see any sign of cellulitis on the left leg. She has a skin wound that appears uninfected. Bruising on left knee is from fall approx. 2 weeks ago and is improving per the patient. - Monitor left leg - Continue local wound care. -will discharge on levofloxacin. (3) Obstructive sleep apnea: - CPAP at bedtime as needed (4) Hypertension: BP today is 160/90. - HBP at goal (5) CKD (chronic kidney disease), stage III: Creatinine 1.53 upon admission, with range 1.32-1.6. Pre-renal; improved with fluids. - Held lisinopril and diclofenac; restarted lisinopril - Monitor Cr -> Presently down (6) Hypothyroidism: TSH was 8.9 on 07/14/2020. - Continue levothyroxine 150 mcg daily (7) Acid reflux disease: - Continue omeprazole 40 mg daily (8) Depression with anxiety: Depression with anxiety/fibromyalgia. - Continue duloxetine, nortriptyline, and quetiapine. (9) Fibromyalgia: As above (10) DVT prophylaxis: Heparin 5,000 units SQ Q12h Total Time Total Time Spent Total Time Spent (In Minutes): 32 Total Time Includes: Examination of the Patient, Discharge Planning and M edication Reconciliation Discharge Plan Discharge Items Patient Disposition: Home - Self-Care Reason For Visit: LLE CELLULITIS Discharge Diagnosis: LLE cellulitis Activity: Resume your previous activity Non-emergency contact: Primary Care Provider Call non-emergency contact if: you have any medication questions Follow-up/Referrals: Betsy Lovett MD [Primary Care Provider] - 08/01/20 9:20 am Diet: Regular Addtl Attending Provider Instructions: Will recommend to continue antibiotics for 10 more days. Take it vahid full stomach at noon recommend followup with PCP in 1- weeks. If left knee becomes swollen and red will recommend followup with ortho. Pending Studies at Discharge: No Stand-Alone Forms: My [facility] [employer], Smoking Cessation Medications and DC Order Prescriptions: New levofloxacin 750 mg tablet 750 mg PO .NOON 10 Days Qty: 10 RF: 0 Continued (DME) CPAP Supplies Misc See Rx Instructions .ROUTE .MEDSUPPLY Qty: 1 RF: 0 duloxetine 60 mg capsule,delayed release(DR/EC) 60 mg PO DAILY Qty: 30 RF: 5 quetiapine 25 mg tablet 75 mg PO HS Qty: 90 RF: 5 nortriptyline 75 mg capsule 150 mg PO HS Qty: 60 RF: 5 levothyroxine 150 mcg tablet 150 mcg PO QAM Qty: 90 RF: 1 lisinopril 20 mg tablet 20 mg PO QAM Qty: 90 RF: 1 omeprazole 40 mg capsule,delayed release(DR/EC) 40 mg PO DAILY Qty: 90 RF: 1 albuterol sulfate [Ventolin HFA] 90 mcg/actuation HFA aerosol inhaler 1 puff inhalation Q4H PRN (Reason: Shortness Of Breath Or Wheezing) Qty: 18 RF: 0 cholecalciferol (vitamin D3) 1,000 unit capsule 1,000 unit PO QAM RF: 0 flaxseed oil 1,000 mg capsule 1,000 mg PO QAM RF: 0 acetaminophen 650 mg tablet extended release 1,300 mg PO BID PRN (Reason: Pain) RF: 0 Centrum 18-400 mg-mcg tablet 1 tab PO QAM RF: 0 aspirin 81 mg Tablet,Delayed Release (Dr/Ec) 81 mg PO QPM RF: 0 Discontinued diclofenac sodium 75 mg tablet,delayed release (DR/EC) 75 mg PO Q12H Qty: 60 RF: 5 Discharge Orders: Discharge Order (Routine); Ordered 07/25/20 Ordered By: Donovan Brito/Other Patient Handouts: Discharge Instructions for Cellulitis Admission Data Admit Date/Time: 07/21/20 23:10 Attending Provider: Donovan Hernadez Admit Provider: Donald Beal Primary Care Provider: Betsy Lovett Other Providers: Kaleb Borrero ; Mark Greenberg ; Ankur Kulkarni ; Soraya White ; Cristo Mabry I. ; Glenn Weldon II ; Julieth Aguirre ; Alfa Morales ; Herman López ; Shivam Moise ; Devan Whittington ; Shaila Phillips ; Eduardo Sheridan ; Natasha Villa ; Anthony Velazquez ; Jorge Burr ; Alfa Hsieh Andrew J. ; Jorge Alvarez ; Ender Puri ; Mode Matrin ; uJan David Westfall ; Ángel Jaramillo ; Natasha Mead ; Filippo Moss ; Fortino Ambrocio ; Mary Calderon ; Damon Nair ; Mackenzie Monahan Other Interventions: Discharge Summary Assessment (RN) Last Done: 07/25/20 16:41 Coding Level of Care Code D/C Day Management >30 mins Diagnoses Gram-negative bacteremia R78.81 Cellulitis of left lower extremity without foot L03.116 Obstructive sleep apnea G47.33 Hypertension I10 CKD (chronic kidney disease), stage III N18.30 Hypothyroidism E03.9 Acid reflux disease K21.9 Depression with anxiety F41.8 Fibromyalgia M79.7 DVT prophylaxis Z29.9 Time Spent (min) 32
== END 2020-07-25 16:41 | disposition home or self-care (01) | DRG 872 ==
LOC: ED 16:03 → 3W 23:10 → SUATTDRO 23:10 → 3W 23:30